=== PATIENT | female | born 1955 | race Caucasian/White ===

== ENCOUNTER 2017-06-26 18:57 | Observation (INO) ==
[2017-06-26] MEDS ORDERED: Ipratropium/Albuterol Neb 3 ML IH ONE (19:22)
[2017-06-26] MEDS ORDERED: 0.9 % Sodium Chloride 1,000 ML IVC ONE (19:23)
--- NOTE | 2017-06-26 19:28 | Emergency Department Note ---
Disposition Clinical Impression: Anemia Qualifiers: Anemia type: unspecified type Qualified Code(s): D64.9 - Anemia, unspecified Pneumonia Qualifiers: Pneumonia type: due to unspecified organism Laterality: right Lung location: lower lobe of lung Qualified Code(s): J18.1 - Lobar pneumonia, unspecified organism Sepsis Qualifiers: Sepsis type: sepsis due to unspecified organism Qualified Code(s): A41.9 - Sepsis, unspecified organism Fever Qualifiers: Fever type: unspecified Qualified Code(s): R50.9 - Fever, unspecified Disposition: Admitted As Inpatient Condition: Fair Time of Disposition: 20:30 General Adult HPI - General Chief complaint: ED Shortness of Breath/Dyspnea Stated complaint: EDNA, sent from Time Seen by Provider: 06/26/17 19:09 Source: patient Limitations: no limitations Nursing Notes Reviewed: Yes Vital Signs Reviewed: Yes - History of Present Illness HPI Narrative: Patient is a 62-year-old female that presents the emergency department for shortness of breath. States is been ongoing for approximately one week. States that she has also had an associated cough or she is coughing up white phlegm. Patient states that she has been feeling warm and has been febrile as high as 102. Patient also states that today she had an episode of chest pain is located in the center of her chest without radiation. States that she took one nitroglycerin and this relieved her pain. Patient does state that she has a history of COPD and takes and inhalers and has been using these regularly. Patient denies any diaphoresis or nausea during the episode of chest pain. Pain Scale: 0 - Related Data Home Medications Medication Instructions Recorded Confirmed Alprazolam 06/26/17 Amitriptyline 06/26/17 Aspirin 06/26/17 Basaglar Kwikpen U-100 06/26/17 Lantus Solostar 06/26/17 Lasix 06/26/17 Losartan Potassium 06/26/17 Lovastatin 06/26/17 Lyrica 06/26/17 Metoprolol Tartrate 06/26/17 Rizatriptan Benzoate 06/26/17 Symbicort 160/4.5 06/26/17 metFORMIN 06/26/17 Previous Rx's Medication Instructions Recorded Benzonatate [Tessalon] 100 mg PO TID #15 capsule 06/26/17 Ipratropium/Albuterol Neb [Duoneb] 3 ml IH Q6HR #30 vial.neb 06/26/17 Levofloxacin [Levaquin] 750 mg PO DAILY #10 tablet 06/26/17 PredniSONE [Deltasone] 20 mg PO DAILY #12 tablet 06/26/17 Allergies Allergy/AdvReac Type Severity Reaction Status Date / Time Cephalosporins AdvReac Flushing Verified 06/05/15 08:00 All systems ED: reviewed and negative except as stated. Constitutional: Reports: fever Cardiovascular: Reports: chest pain Respiratory: Reports: cough, dyspnea, wheezes, sputum production Gastrointestinal: Reports: nausea. Denies: abdominal pain, vomiting Past Medical History - Past Medical History Medical history: Reports: arthritis, COPD, coronary artery disease, diabetes, GERD, hyperlipidemia, hypertension, other Surgical history: Reports: angioplasty/stent, hysterectomy Psychiatric history: Reports: no psych history - Social History Smoking Status: Former smoker Smokeless Tobacco Status: No Alcohol use: Reports: none Drug use: Reports: none Physical Exam - General Limitations: no limitations General appearance: alert, in no apparent distress - Head Head exam: atraumatic, normocephalic - Eye Eye exam: Present: normal appearance, EOMI - Neck Neck exam: Present: normal inspection, full ROM, trachea midline - Respiratory Respiratory exam: Present: wheezes, other (Coarse breath sounds bilaterally) - Cardiovascular Cardiovascular exam: Present: regular rate, normal rhythm, normal heart sounds, +S1, +S2 - Abdominal Exam Abdominal exam: Present: soft, Non-Tender, normal bowel sounds - Neurological Exam Neurological exam: Present: alert, oriented X3 - Psychiatric Psychiatric exam: Present: normal affect, normal mood - Skin Skin exam: Present: warm, dry, intact Course Vital Signs Temperature 101.8 F H 06/26/17 19:09 Pulse Rate 104 06/26/17 19:09 Respiratory Rate 22 06/26/17 19:09 Blood Pressure 179/53 06/26/17 19:09 O2 Sat by Pulse Oximetry 89 06/26/17 19:09 Temperature 98.9 F 06/26/17 20:44 Pulse Rate 104 06/26/17 20:19 Respiratory Rate 18 06/26/17 20:19 Blood Pressure 162/76 06/26/17 20:19 O2 Sat by Pulse Oximetry 93 06/26/17 20:19 Oxygen Delivery Oxygen Delivery Nasal Cannula Medical Decision Making - MDM Narrative Medical decision making narrative: Due to the patient presenting to the emergency department with shortness of breath, cough, tachycardic febrile and There is concern for the patient to have sepsis due to underlying pneumonia. We will obtain a CBC, BMP, BMP, troponin chest x-ray and EKG. Blood cultures will also be obtained in with a lactic acid. The patient will also be started on IV fluids and given DuoNeb breathing treatments. Due to the patient meeting SIRS criteria and their concern for pneumonia in the poor sensitivity of a chest x-ray I feel that based on the physical exam findings and the patient's symptoms there is a high likely that this patient could have a pneumonia that his not being seen on the x-ray. We will start this patient on vancomycin and Zosyn and admit the patient to the hospital. Patient was not started on Rocephin and azithromycin due to the patient having an allergy to cephalosporins. Also the patient met sepsis criteria and we felt that her be more appropriate for the patient to be started on broad-spectrum antibiotics. Patient did not have an elevated white count, troponin was negative. Called and spoke with the hospitalist and they have accepted the patient to their service. The patient be admitted to the hospital this time for further evaluation and management. - Medical Records Medical records reviewed: Yes I reviewed the patient's medical records. - Lab Data Lab results reviewed: Yes I reviewed the patient's lab results. Result diagrams: 06/26/17 19:22 06/26/17 19:26 Lab Results 06/26/17 06/26/17 06/26/17 Range/Units 19:21 19:22 19:22 WBC 8.5 (4.3-11.1) K/mcL RBC 3.85 (3.82-4.97) M/mcL Hgb 10.0 L (11.5-15.4) g/dL Hct 30.9 L (35.3-44.9) % MCV 80.3 L (83.0-100.0) fL MCH 26.0 L (28.0-33.3) pg MCHC 32.4 (31.6-35.5) g/dL RDW 15.7 H (11.5-14.5) % Plt Count 232 (140-400) K/mcL MPV 10.4 (9.4-12.4) fL Immature Gran % 0.4 (0-4) % Seg Neutrophils % 85.8 % Lymphocytes % 7.3 % Monocytes % 5.4 % Eosinophils % 0.9 % Basophils % 0.2 % Neutrophils # 7.3 (1.6-8.9) K/mcL Lymphocytes # 0.6 (0.6-4.6) K/mcL Monocytes # 0.5 (0.0-1.3) K/mcL Eosinophils # 0.1 (0.0-0.6) K/mcL Basophils # 0.0 (0.0-0.2) K/mcL Immature Plt Fraction 3.8 (1.1-6.1) % Sodium (136-145) mEq/L Potassium (3.5-5.1) mEq/L Chloride (98-107) mEq/L Carbon Dioxide (23-29) mEq/L BUN (8-23) mg/dL Creatinine (0.60-1.20) mg/dL Est GFR ( Amer) (> 60) Est GFR (Non-Af Amer) (> 60) BUN/Creatinine Ratio (6-26) Glucose (70-105) mg/dL Calculated Osmolality (280-300) Lactic Acid 2.2 (0.5-2.2) mmol/L Calcium (8.6-10.3) mg/dL Troponin I (< 0.04) ng/mL B-Natriuretic Peptide 80 (Less than 100) pg/mL 06/26/17 06/26/17 Range/Units 19:26 21:30 WBC (4.3-11.1) K/mcL RBC (3.82-4.97) M/mcL Hgb (11.5-15.4) g/dL Hct (35.3-44.9) % MCV (83.0-100.0) fL MCH (28.0-33.3) pg MCHC (31.6-35.5) g/dL RDW (11.5-14.5) % Plt Count (140-400) K/mcL MPV (9.4-12.4) fL Immature Gran % (0-4) % Seg Neutrophils % % Lymphocytes % % Monocytes % % Eosinophils % % Basophils % % Neutrophils # (1.6-8.9) K/mcL Lymphocytes # (0.6-4.6) K/mcL Monocytes # (0.0-1.3) K/mcL Eosinophils # (0.0-0.6) K/mcL Basophils # (0.0-0.2) K/mcL Immature Plt Fraction (1.1-6.1) % Sodium 132 L (136-145) mEq/L Potassium 4.3 (3.5-5.1) mEq/L Chloride 100 (98-107) mEq/L Carbon Dioxide 22 L (23-29) mEq/L BUN 23 (8-23) mg/dL Creatinine 0.90 (0.60-1.20) mg/dL Est GFR ( Amer) > 60 (> 60) Est GFR (Non-Af Amer) > 60 (> 60) BUN/Creatinine Ratio 26 (6-26) Glucose 285 H (70-105) mg/dL Calculated Osmolality 288 (280-300) Lactic Acid 1.6 (0.5-2.2) mmol/L Calcium 8.3 L (8.6-10.3) mg/dL Troponin I < 0.03 (< 0.04) ng/mL B-Natriuretic Peptide (Less than 100) pg/mL - Radiology Data Radiology results reviewed: Yes I reviewed the patient's radiology results. - EKG Data EKG #1 EKG attestation: Yes I reviewed and interpreted this EKG. EKG results narrative: EKG showed sinus tachycardia at a rate of 100 bpm, MS interval of 163, QRS duration of 88, QTC of 393 with a normal axis. There is no evidence of STEMI on EKG. This is compared to previous EKG on 11/29/13 which showed a sinus rhythm at a rate of 77 bpm.
--- NOTE | 2017-06-26 19:30 | Emergency Department Note ---
Disposition Clinical Impression: Anemia, Pneumonia, Sepsis Disposition: Admitted As Inpatient Condition: Fair General Adult HPI - General Chief complaint: ED Shortness of Breath/Dyspnea Stated complaint: EDNA, sent from Time Seen by Provider: 06/26/17 19:09 Source: patient Limitations: no limitations Nursing Notes Reviewed: Yes Vital Signs Reviewed: Yes - History of Present Illness Pain Scale: 0 - Related Data Home Medications Medication Instructions Recorded Confirmed Alprazolam 1 mg PO TID PRN 06/26/17 Amitriptyline 06/26/17 Aspirin 06/26/17 Basaglar Kwikpen U-100 06/26/17 Lantus Solostar 06/26/17 Lasix 06/26/17 Losartan Potassium 06/26/17 Lovastatin 06/26/17 Lyrica 06/26/17 Metoprolol Tartrate 06/26/17 Rizatriptan Benzoate 06/26/17 Symbicort 160/4.5 06/26/17 metFORMIN 06/26/17 Previous Rx's Medication Instructions Recorded Benzonatate [Tessalon] 100 mg PO TID #15 capsule 06/26/17 Ipratropium/Albuterol Neb [Duoneb] 3 ml IH Q6HR #30 vial.neb 06/26/17 Levofloxacin [Levaquin] 750 mg PO DAILY #10 tablet 06/26/17 PredniSONE [Deltasone] 20 mg PO DAILY #12 tablet 06/26/17 Allergies Allergy/AdvReac Type Severity Reaction Status Date / Time Cephalosporins AdvReac Flushing Verified 06/05/15 08:00 Past Medical History - Past Medical History Medical history: Reports: arthritis, COPD, coronary artery disease, diabetes, GERD, hyperlipidemia, hypertension, other Surgical history: Reports: angioplasty/stent, hysterectomy Psychiatric history: Reports: no psych history - Social History Smoking Status: Former smoker Smokeless Tobacco Status: No Alcohol use: Reports: none Drug use: Reports: none Physical Exam - General Limitations: no limitations General appearance: alert, in no apparent distress Course - Reevaluation(s) Reevaluation #1: I examined this patient and my medical decision-making was reviewed with Dr. Fountain. I agree with the documented findings, disposition and treatment plan. This is a 62 year-old female with history of HTN, IDDM, CAD/stent, and COPD (no home O2). She presents with dyspnea, gradually worsening for the past 2-3 days, associated with fever and productive cough. She had a brief episode of chest pain en route to the hospital, relieved by NTG. On exam, patient is in mild to moderate respiratory distress. Fever, mild tachcardia, and hypoxia are noted. Bilateral expiratory wheezes. Overall, patient's presentation is highly suggestive of pneumonia, sepsis, and COPD exacerbation. We will initiate fluids, antibiotics, and nebs, in addition to blood cultures, lactate, and other diagnostic tests. Time: 19:25 Vital Signs Temperature 101.8 F H 06/26/17 19:09 Pulse Rate 104 06/26/17 19:09 Respiratory Rate 22 06/26/17 19:09 Blood Pressure 179/53 06/26/17 19:09 O2 Sat by Pulse Oximetry 89 06/26/17 19:09 Temperature 97.6 F 06/26/17 23:51 Pulse Rate 80 06/26/17 23:51 Respiratory Rate 17 06/26/17 23:51 Blood Pressure 152/70 06/26/17 23:51 O2 Sat by Pulse Oximetry 94 06/26/17 23:51 Oxygen Delivery Oxygen Delivery Nasal Cannula Medical Decision Making - Lab Data Result diagrams: 06/26/17 19:22 06/26/17 19:26 Lab Results 06/26/17 06/26/17 06/26/17 Range/Units 19:21 19:22 19:22 WBC 8.5 (4.3-11.1) K/mcL RBC 3.85 (3.82-4.97) M/mcL Hgb 10.0 L (11.5-15.4) g/dL Hct 30.9 L (35.3-44.9) % MCV 80.3 L (83.0-100.0) fL MCH 26.0 L (28.0-33.3) pg MCHC 32.4 (31.6-35.5) g/dL RDW 15.7 H (11.5-14.5) % Plt Count 232 (140-400) K/mcL MPV 10.4 (9.4-12.4) fL Immature Gran % 0.4 (0-4) % Seg Neutrophils % 85.8 % Lymphocytes % 7.3 % Monocytes % 5.4 % Eosinophils % 0.9 % Basophils % 0.2 % Neutrophils # 7.3 (1.6-8.9) K/mcL Lymphocytes # 0.6 (0.6-4.6) K/mcL Monocytes # 0.5 (0.0-1.3) K/mcL Eosinophils # 0.1 (0.0-0.6) K/mcL Basophils # 0.0 (0.0-0.2) K/mcL Immature Plt Fraction 3.8 (1.1-6.1) % Sodium (136-145) mEq/L Potassium (3.5-5.1) mEq/L Chloride (98-107) mEq/L Carbon Dioxide (23-29) mEq/L BUN (8-23) mg/dL Creatinine (0.60-1.20) mg/dL Est GFR ( Amer) (> 60) Est GFR (Non-Af Amer) (> 60) BUN/Creatinine Ratio (6-26) Glucose (70-105) mg/dL Calculated Osmolality (280-300) Lactic Acid 2.2 (0.5-2.2) mmol/L Calcium (8.6-10.3) mg/dL Troponin I (< 0.04) ng/mL B-Natriuretic Peptide 80 (Less than 100) pg/mL 06/26/17 06/26/17 Range/Units 19:26 21:30 WBC (4.3-11.1) K/mcL RBC (3.82-4.97) M/mcL Hgb (11.5-15.4) g/dL Hct (35.3-44.9) % MCV (83.0-100.0) fL MCH (28.0-33.3) pg MCHC (31.6-35.5) g/dL RDW (11.5-14.5) % Plt Count (140-400) K/mcL MPV (9.4-12.4) fL Immature Gran % (0-4) % Seg Neutrophils % % Lymphocytes % % Monocytes % % Eosinophils % % Basophils % % Neutrophils # (1.6-8.9) K/mcL Lymphocytes # (0.6-4.6) K/mcL Monocytes # (0.0-1.3) K/mcL Eosinophils # (0.0-0.6) K/mcL Basophils # (0.0-0.2) K/mcL Immature Plt Fraction (1.1-6.1) % Sodium 132 L (136-145) mEq/L Potassium 4.3 (3.5-5.1) mEq/L Chloride 100 (98-107) mEq/L Carbon Dioxide 22 L (23-29) mEq/L BUN 23 (8-23) mg/dL Creatinine 0.90 (0.60-1.20) mg/dL Est GFR ( Amer) > 60 (> 60) Est GFR (Non-Af Amer) > 60 (> 60) BUN/Creatinine Ratio 26 (6-26) Glucose 285 H (70-105) mg/dL Calculated Osmolality 288 (280-300) Lactic Acid 1.6 (0.5-2.2) mmol/L Calcium 8.3 L (8.6-10.3) mg/dL Troponin I < 0.03 (< 0.04) ng/mL B-Natriuretic Peptide (Less than 100) pg/mL - Radiology Data Radiology results reviewed: Yes I reviewed the patient's radiology results. XR/XR chest 2V IMPRESSION: 1. Mild basilar atelectasis. Otherwise unremarkable chest radiograph. - EKG Data EKG #1 EKG attestation: Yes I reviewed and interpreted this EKG. EKG shows normal: sinus rhythm Rate: tachycardia [place]/QRS: normal When compared to previous EKG there are: no significant changes Interpretation: no acute changes
[2017-06-26 19:41] LABS: Basophils % 0.2 %; Eosinophils # 0.1 K/mcL (0.0-0.6); Eosinophils % 0.9 %; Hematocrit 30.9 % (35.3-44.9); Immature Granulocytes % 0.4 % (0-4); Immature Platelets 3.8 % (1.1-6.1); Lymphocytes # 0.6 K/mcL (0.6-4.6); Lymphocytes % 7.3 %; Mean Corpuscular HGB Conc 32.4 g/dL (31.6-35.5); Mean Corpuscular Volume 80.3 fL (83.0-100.0); Mean Platelet Volume 10.4 fL (9.4-12.4); Monocytes # 0.5 K/mcL (0.0-1.3); Monocytes % 5.4 %; Neutrophils # 7.3 K/mcL (1.6-8.9); Platelet Count 232 K/mcL (140-400); Red Blood Count 3.85 M/mcL (3.82-4.97); Red Cell Distribution Width 15.7 % (11.5-14.5); Segmented Neutrophils % 85.8 %
[2017-06-26] MEDS ORDERED: Aspirin 81 MG TAB.CHEW PO STA (19:42)
[2017-06-26] MEDS ORDERED: Piperacillin/Tazobactam 3.375 GM in 0.9 % Sodium Chloride Mini Bag 100 ML IVPB ONE (19:48)
[2017-06-26 20:09] LABS: BUN/Creatinine Ratio 26 (6-26); Blood Urea Nitrogen 23 mg/dL (8-23); Calcium 8.3 mg/dL (8.6-10.3); Carbon Dioxide 22 mEq/L (23-29); Chloride 100 mEq/L (98-107); Glucose 285 mg/dL (70-105); Osmolality,Calculated 288 (280-300); Potassium 4.3 mEq/L (3.5-5.1); Sodium 132 mEq/L (136-145); eGFR For African Americans > 60 (> 60); eGFR For Non-African Americans > 60 (> 60)
[2017-06-26 20:25] LABS: Troponin I < 0.03 ng/mL (< 0.04)
[2017-06-26] MEDS ORDERED: D5% in Water 1,000 ML IVC PRN (20:52)
[2017-06-26] MEDS ORDERED: Naloxone 0.4 MG/ML INJ IVP PRN (20:52)
[2017-06-26] MEDS ORDERED: Dextrose Gel 15 GM/37.5 ML TUBE PO PRN ×2 (20:52)
[2017-06-26] MEDS ORDERED: *HR* Dextrose 50 % in Water (Syg) 50 ML SYRINGE IVP PRN (20:52)
--- NOTE | 2017-06-26 21:07 | Internal Med History&Physical ---
Date of Encounter: 06/26/17 Time of Encounter: 20:57 Internal Medicine - H&P: HPI Chief complaint: shortness of breath Admitted From: Emergency Dept Plans for Post Hospital Care: Home History of present illness: Ms. Valle is a 62 year old female with history of COPD, CAD s/p stents, HTN, DM who presents with shortness of breath and found to be hypoxic in the 80s on room air. The patient was seen at [facility] and was also hypoxic there and refused going to the ED from there. She left and continued to have symptoms of shortenss of breath with cough and productive sputum. She as febrile up to 102 and was around that in the ED. She was tachycardic. She has been having symptoms for a few days. She complaints of chest pain en route to here that was brief and relieved by SL nitro. EKG with no acute ST or T wave changes. No headache, blurry vision, nausea, vomiting, abdominal pain, diarrhea, constipation, urinary symptoms, or neurological symptoms. In the ED, CXR failed to show an infiltrate but the patient was giving broad spectrum abx for clinical pneumonia. She was given nebs and IV fluids. Past Med Surg Social Fam HX - Past Medical History Medical history: arthritis, COPD, coronary artery disease, diabetes, GERD, hyperlipidemia, hypertension, other Psychiatric history: no psych history - Past Surgical History Surgical History: angioplasty/stent, hysterectomy - Social History Smoking Status: Former smoker Smokeless Tobacco Status: No Alcohol use: none Drug use: none Internal Medicine - H&P: Meds Alprazolam 06/26/17 [History] Amitriptyline 06/26/17 [History] Aspirin 06/26/17 [History] Basaglar Kwikpen U-100 06/26/17 [History] Benzonatate [Tessalon] 100 mg PO TID #15 capsule 06/26/17 [Rx] Ipratropium/Albuterol Neb [Duoneb] 3 ml IH Q6HR #30 vial.neb 06/26/17 [Rx] Lantus Solostar 06/26/17 [History] Lasix 06/26/17 [History] Levofloxacin [Levaquin] 750 mg PO DAILY #10 tablet 06/26/17 [Rx] Losartan Potassium 06/26/17 [History] Lovastatin 06/26/17 [History] Lyrica 06/26/17 [History] Metoprolol Tartrate 06/26/17 [History] PredniSONE [Deltasone] 20 mg PO DAILY #12 tablet 06/26/17 [Rx] Rizatriptan Benzoate 06/26/17 [History] Symbicort 160/4.5 06/26/17 [History] metFORMIN 06/26/17 [History] 3 Allergy/AdvReac Type Severity Reaction Status Date / Time Cephalosporins AdvReac Flushing Verified 06/05/15 08:00 All Systems PM: A 10-system review of systems was performed and is negative for pertinent findings except as documented above in the HPI. Review of systems: All systems reviewed are negative except as mentioned above - Constitutional Vitals: Temp Pulse Resp BP Pulse Ox 98.9 F 104 18 162/76 93 06/26/17 20:44 06/26/17 20:19 06/26/17 20:19 06/26/17 20:19 06/26/17 20:19 Exam: GEN: NAD HEENT: AT, NC, No cyanosis, oral mucosa is moist, No JVD Lymphatics: No lymphadenoapthy Eyes: Extrocular muscles intact, anicteric CVS:RRR. S1, S2, No m/r/g RESP: CTAB ABD: Soft, NT, ND, +BS EXT: No edema, No rashes, 2+ DP NEURO: Nonfocal, CN II-XII intact, No focal motor or sensory deficits Psych: Cooperative, Not anxious or depressed Internal Med - H&P Results - Labs CBC & Chem 7: 06/26/17 19:22 06/26/17 19:26 Labs: Short CBC 06/26/17 Range/Units 19:22 WBC 8.5 (4.3-11.1) K/mcL Hgb 10.0 L (11.5-15.4) g/dL Hct 30.9 L (35.3-44.9) % Plt Count 232 (140-400) K/mcL Neutrophils # 7.3 (1.6-8.9) K/mcL BMP 06/26/17 19:26 Sodium 132 L Potassium 4.3 Chloride 100 Carbon Dioxide 22 L BUN 23 Creatinine 0.90 Glucose 285 H Calcium 8.3 L Cardiac Enzymes 06/26/17 Range/Units 19:26 Troponin I < 0.03 (< 0.04) ng/mL - Assessment and plan (1) Sepsis Current Visit: Yes Status: Acute Assessment and plan: Patient has septic-looking picture possibly from pneumonia/bronchitis. Lactic acid is normal. We will continue gentle hydration. The patient heart rate is coming down. Treat underlying cause as below. Qualifiers: Sepsis type: sepsis due to unspecified organism Qualified Code(s): A41.9 - Sepsis, unspecified organism (2) Acute respiratory failure with hypoxia Current Visit: Yes Status: Acute Assessment and plan: Likely from COPD exacerbation and clinical pneumonia/bronchitis. We will continue to support and nebulizers. Treat underlying causes as below. (3) COPD exacerbation Current Visit: Yes Status: Acute Assessment and plan: O2 support. Nebs. IV Solu-Medrol every 8 hours. Wean down oxygen as tolerated. On Levaquin. (4) Bronchitis Current Visit: Yes Status: Acute Assessment and plan: The patient has been placed on Levaquin. O2 support. Nebs. check urine strep and legionella. check sputum. f/u on blood cultures. (5) Chest pain Current Visit: Yes Status: Acute Assessment and plan: non specific sharp pain. One episode with no EKG changes. Will trend cardiac enzymes for now. Qualifiers: Chest pain type: unspecified Qualified Code(s): R07.9 - Chest pain, unspecified (6) Diabetes mellitus Current Visit: Yes Status: Acute Assessment and plan: Insulin sliding scale. Resume home basal insulin. Accu-Cheks. 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 enamel finisher insulin use: with enamel finisher use Diabetes mellitus complication status: without complication Qualified Code(s): E11.9 - Type 2 diabetes mellitus without complications; Z79.4 - detention (current) use of insulin; Z79.4 - sports official ( current) use of insulin; Z79.4 - sports official (current) use of insulin; Z79.4 - sports official (current) use of insulin (7) Hypertension Current Visit: Yes Status: Acute Assessment and plan: Continue home antihypertensives Qualifiers: Hypertension type: essential hypertension Qualified Code(s): I10 - Essential (primary) hypertension (8) DVT prophylaxis Current Visit: Yes Status: Acute Assessment and plan: heparin SQ - Time Spent With Patient Total time spent is greater than 50% in coordination of care (as documented) at patient's floor/unit and/or counseling patient:
[2017-06-26] MEDS: Ipratropium/Albuterol Neb 3 ML IH SCH (23:21)
[2017-06-27] MEDS: 0.9 % Sodium Chloride 1,000 ML IVC SCH
[2017-06-27] MEDS: *HR* Heparin 5,000 UNIT/ML VIAL SQ SCH ×3 (00:01→18:21)
[2017-06-27] MEDS: Insulin LISPRO 300 UNITS/3 ML VIAL SQ SCH ×5 (00:22→21:29)
[2017-06-27 01:38] LABS: Basophils % 0.1 %; Hematocrit 29.9 % (35.3-44.9); Hemoglobin 9.5 g/dL (11.5-15.4); Immature Granulocytes % 0.5 % (0-4); Lymphocytes # 0.7 K/mcL (0.6-4.6); Lymphocytes % 6.5 %; Mean Corpuscular HGB Conc 31.8 g/dL (31.6-35.5); Mean Corpuscular Hemoglobin 25.6 pg (28.0-33.3); Mean Corpuscular Volume 80.6 fL (83.0-100.0); Mean Platelet Volume 10.3 fL (9.4-12.4); Monocytes # 0.2 K/mcL (0.0-1.3); Monocytes % 1.8 %; Neutrophils # 10.1 K/mcL (1.6-8.9); Platelet Count 215 K/mcL (140-400); Red Blood Count 3.71 M/mcL (3.82-4.97); Red Cell Distribution Width 15.7 % (11.5-14.5); Segmented Neutrophils % 91.1 %
[2017-06-27 01:57] LABS: BUN/Creatinine Ratio 27 (6-26); Blood Urea Nitrogen 20 mg/dL (8-23); Calcium 7.9 mg/dL (8.6-10.3); Carbon Dioxide 19 mEq/L (23-29); Chloride 103 mEq/L (98-107); Glucose 348 mg/dL (70-105); Magnesium 0.8 mg/dL (1.6-2.6); Osmolality,Calculated 292 (280-300); Potassium 3.7 mEq/L (3.5-5.1); Sodium 133 mEq/L (136-145); eGFR For African Americans > 60 (> 60); eGFR For Non-African Americans > 60 (> 60)
[2017-06-27] MEDS: Ipratropium/Albuterol Neb 3 ML IH SCH ×4 (05:35→21:28)
--- NOTE | 2017-06-27 08:44 | Internal Med Progress Note ---
<Sharath Dodson - Last Filed: 06/27/17 13:39> Date of Encounter: 06/27/17 Time of Encounter: 08:43 - Assessment and plan (1) Acute respiratory failure with hypoxia Current Visit: Yes Status: Acute Assessment and plan: Improved. Patient initially presents with hypoxia into 80s from Urgent Care. Oxygen levels around 93%+ on room air and 98% on 2L nasal cannula Likely secondary to COPD exacerbation and clinical pneumonia. CXR revealed mild basilar atelectasis. Urine Antigen positive for S. pneumoniae. Continue with solumedrol 60mg q8h and Levaquin d2 Supplemental oxygen as needed, and nebulizers. Sputum culture ordered Blood cultures pending. (2) COPD exacerbation Current Visit: Yes Status: Acute Assessment and plan: Continue per plan in assessment above. (3) Bronchitis Current Visit: Yes Status: Acute Assessment and plan: Continue per plan in assessment above. (4) Sepsis Current Visit: Yes Status: Resolved Assessment and plan: Patient presented initially with septic-looking picture, but no leukocytosis, normal lactic acid. Tachycardia and fever resolved by hospital admission. Qualifiers: Sepsis type: sepsis due to unspecified organism Qualified Code(s): A41.9 - Sepsis, unspecified organism (5) Chest pain Current Visit: Yes Status: Acute Assessment and plan: Chest pain is reproducible with palpation, most likely musculoskeletal and related to acute bronchitis. EKG negative for acute changes. Troponin negative x 3. Qualifiers: Chest pain type: unspecified Qualified Code(s): R07.9 - Chest pain, unspecified (6) Diabetes mellitus Current Visit: Yes Status: Chronic Assessment and plan: Known history of diabetes. Glucose 348 this morning. Continue with sliding scale insulin and home insulin dosing. Diabetic diet 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 snf insulin use: with snf use Diabetes mellitus complication status: without complication Qualified Code(s): E11.9 - Type 2 diabetes mellitus without complications; Z79.4 - skilled nursing (current) use of insulin; Z79.4 - skilled nursing ( current) use of insulin; Z79.4 - skilled nursing (current) use of insulin; Z79.4 - exterminator termite (current) use of insulin (7) Hypertension Current Visit: Yes Status: Chronic Assessment and plan: Bp elevated at 160/82. Continue with home medications for chronic disease management. Continue monitoring bp during hospitalization. Qualifiers: Hypertension type: essential hypertension Qualified Code(s): I10 - Essential (primary) hypertension (8) DVT prophylaxis Current Visit: Yes Status: Acute Assessment and plan: Heparin sq for dvt ppx. (9) Hypomagnesemia Current Visit: Yes Status: Acute Assessment and plan: Magnesium at 0.8. 4 grams IV once completed. Repeat magnesium level. - Time Spent With Patient Total time spent is greater than 50% in coordination of care (as documented) at patient's floor/unit and/or counseling patient: - Subjective Interval history: Patient has no new complaints this morning. Doing well, feeling less short of breath, decreased cough. Reports some midsternal chest pain, but much improved this morning. Patient has a history of COPD not on oxygen. Denies fevers, chills, sweats, headaches, lightheadedness, nausea, vomiting, abdominal pain, changes in bowels or bladder, weakness, or loss of sensation. - Constitutional Vitals: Temp Pulse Resp BP Pulse Ox 97.4 F L 87 19 160/82 98 06/27/17 07:00 06/27/17 07:00 06/27/17 07:00 06/27/17 07:00 06/27/17 07:00 General appearance: Present: cooperative, A&O X 3, pleasant, no acute distress, obese, answers questions appropriately - Head Head exam: Present: atraumatic, normal inspection, normocephalic - Eye Eye exam: Present: EOMI, normal appearance - ENT ENT exam: Present: mucous membranes moist, normal exam - Neck Neck exam general surgery: Present: full ROM, normal inspection, trachea midline. Absent: lymphadenopathy - Respiratory Respiratory exam: Present: chest wall tenderness (minimal tenderness with palpation), rhonchi, wheezes (expiratory). Absent: decreased breath sounds, rales, respiratory distress Additional comments: comfortable off oxygen. - Cardiovascular Cardiovascular exam: Present: RRR, +S1, +S2 - GI/Abdominal GI/Abdominal exam: Present: normal bowel sounds, soft. Absent: tenderness - Extremities Exam Extremities exam: Present: full ROM, normal inspection, warm, radial pulses palpable and symmetrical. Absent: pedal edema Internal Medicine: Result - Labs CBC & Chem 7: 06/27/17 01:24 06/27/17 01:24 Labs: Short CBC 06/27/17 Range/Units 01:24 WBC 11.1 (4.3-11.1) K/mcL Hgb 9.5 L (11.5-15.4) g/dL Hct 29.9 L (35.3-44.9) % Plt Count 215 (140-400) K/mcL Neutrophils # 10.1 H (1.6-8.9) K/mcL BMP 06/27/17 01:24 Sodium 133 L Potassium 3.7 Chloride 103 Carbon Dioxide 19 L BUN 20 Creatinine 0.73 Glucose 348 H Calcium 7.9 L Cardiac Enzymes 06/27/17 Range/Units 01:24 Troponin I < 0.03 (< 0.04) ng/mL Consult Discharge Plan - Plan Referrals: Ronnie Mendoza DO [Primary Care Provider] - <Jose R Hunt - Last Filed: 06/27/17 17:34> Date of Encounter: 06/27/17 - Assessment and plan (1) Sepsis Current Visit: Yes Status: Resolved Qualifiers: Sepsis type: sepsis due to unspecified organism Qualified Code(s): A41.9 - Sepsis, unspecified organism (2) Diabetes mellitus Current Visit: Yes Status: Chronic 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 operator insulin use: with snf use Diabetes mellitus complication status: without complication Qualified Code(s): E11.9 - Type 2 diabetes mellitus without complications; Z79.4 - exterminator termite (current) use of insulin; Z79.4 - exterminator termite ( current) use of insulin; Z79.4 - exterminator termite (current) use of insulin; Z79.4 - skilled nursing (current) use of insulin (3) Hypertension Current Visit: Yes Status: Chronic Qualifiers: Hypertension type: essential hypertension Qualified Code(s): I10 - Essential (primary) hypertension (4) DVT prophylaxis Current Visit: Yes Status: Acute (5) Acute respiratory failure with hypoxia Current Visit: Yes Status: Acute (6) COPD exacerbation Current Visit: Yes Status: Acute (7) Bronchitis Current Visit: Yes Status: Acute (8) Chest pain Current Visit: Yes Status: Acute Qualifiers: Chest pain type: unspecified Qualified Code(s): R07.9 - Chest pain, unspecified (9) Hypomagnesemia Current Visit: Yes Status: Acute (10) Pneumonia Current Visit: Yes Status: Acute Qualifiers: Pneumonia type: due to group B Streptococcus Laterality: right Lung location: lower lobe of lung Qualified Code(s): J15.3 - Pneumonia due to streptococcus, group B (11) Anemia Current Visit: Yes Status: Chronic Qualifiers: Anemia type: unspecified type Qualified Code(s): D64.9 - Anemia, unspecified - Time Spent With Patient Total time spent is greater than 50% in coordination of care (as documented) at patient's floor/unit and/or counseling patient: - Constitutional Vitals: Temp Pulse Resp BP Pulse Ox 97.6 F 115 16 178/82 95 06/27/17 16:00 06/27/17 16:00 06/27/17 16:01 06/27/17 16:00 06/27/17 16:01 Internal Medicine: Result - Labs CBC & Chem 7: 06/27/17 01:24 06/27/17 01:24 Labs: Short CBC 06/27/17 Range/Units 01:24 WBC 11.1 (4.3-11.1) K/mcL Hgb 9.5 L (11.5-15.4) g/dL Hct 29.9 L (35.3-44.9) % Plt Count 215 (140-400) K/mcL Neutrophils # 10.1 H (1.6-8.9) K/mcL BMP 06/27/17 01:24 Sodium 133 L Potassium 3.7 Chloride 103 Carbon Dioxide 19 L BUN 20 Creatinine 0.73 Glucose 348 H Calcium 7.9 L Cardiac Enzymes 06/27/17 06/27/17 Range/Units 01:24 08:10 Troponin I < 0.03 < 0.03 (< 0.04) ng/mL - Attending Attestation I examined this patient 06/27, and my medical decision-making was reviewed with the Resident Physician. I agree with the documented findings, disposition and treatment plan as described except to the extent set forth below. Seen and examined at the bedside. 62-year-old female being managed for sepsis secondary to pneumococcal pneumonia, COPD exacerbation, acute hypoxic respiratory failure. She has a medical history of diabetes mellitus, hypertension and morbid obesity. She reports clinical improvement. Physical examination remarkable for diffuse rhonchi. Minimal wheezing. No pedal edema. Abdomen is benign. Labs and imaging reviewed-chronic anemia, no leukocytosis, hyperglycemia. Sputum culture with many gram-positive cocci, urine streptococcal antigen positive. Continue current management. Change steroids to oral in the morning. Follow final sputum culture. Resume home medications. Rest of details as in the resident physicians documentation
[2017-06-27] MEDS: methylPREDNISolone 125 MG/2 ML VIAL IVP SCH ×3 (08:59→18:20)
[2017-06-27] MEDS: *HR* HYDROcodone/Acet 10/325 mg TABLET PO PRN ×2 (09:00→21:43)
[2017-06-27] MEDS ORDERED: Insulin DETEMIR 100 UNIT/ML X5UNITS SQ SCH (21:00)
[2017-06-27] MEDS: Ranolazine 500 MG TAB.ER.12H PO SCH (21:26)
[2017-06-27] MEDS: Losartan/HCTZ 50-12.5 TABLET PO SCH (21:26)
[2017-06-27] MEDS: Levofloxacin 750 MG/150 ML 750 MG/150 ML BAG IVPB SCH ×2 (21:27)
[2017-06-28] MEDS: methylPREDNISolone 125 MG/2 ML VIAL IVP SCH (00:25)
[2017-06-28] MEDS: *HR* Heparin 5,000 UNIT/ML VIAL SQ SCH (00:26)
[2017-06-28] MEDS ORDERED: Insulin DETEMIR 100 UNIT/ML X5UNITS SQ STA (00:34)
[2017-06-28] MEDS: Ipratropium/Albuterol Neb 3 ML IH SCH ×2 (04:32→10:33)
[2017-06-28 05:18] LABS: Hematocrit 28.7 % (35.3-44.9); Hemoglobin 9.4 g/dL (11.5-15.4); Immature Granulocytes % 0.7 % (0-4); Lymphocytes # 0.9 K/mcL (0.6-4.6); Lymphocytes % 9.8 %; Mean Corpuscular HGB Conc 32.8 g/dL (31.6-35.5); Mean Corpuscular Hemoglobin 25.8 pg (28.0-33.3); Mean Corpuscular Volume 78.8 fL (83.0-100.0); Mean Platelet Volume 10.3 fL (9.4-12.4); Monocytes # 0.3 K/mcL (0.0-1.3); Monocytes % 3.6 %; Neutrophils # 8.2 K/mcL (1.6-8.9); Platelet Count 231 K/mcL (140-400); Red Blood Count 3.64 M/mcL (3.82-4.97); Segmented Neutrophils % 85.9 %
[2017-06-28 05:37] LABS: BUN/Creatinine Ratio 31 (6-26); Blood Urea Nitrogen 20 mg/dL (8-23); Calcium 8.3 mg/dL (8.6-10.3); Carbon Dioxide 20 mEq/L (23-29); Chloride 103 mEq/L (98-107); Glucose 373 mg/dL (70-105); Osmolality,Calculated 300 (280-300); Potassium 3.8 mEq/L (3.5-5.1); Sodium 136 mEq/L (136-145); eGFR For African Americans > 60 (> 60); eGFR For Non-African Americans > 60 (> 60)
[2017-06-28] MEDS: 0.9 % Sodium Chloride 1,000 ML IVC SCH (06:14)
[2017-06-28] MEDS: Ranolazine 500 MG TAB.ER.12H PO SCH (07:50)
[2017-06-28] MEDS: Losartan/HCTZ 50-12.5 TABLET PO SCH (07:50)
[2017-06-28] MEDS: Insulin LISPRO 300 UNITS/3 ML VIAL SQ SCH ×2 (07:51→12:03)
[2017-06-28] MEDS ORDERED: predniSONE 20 MG TABLET PO SCH (09:00)
[2017-06-28] MEDS ORDERED: Insulin DETEMIR 100 UNIT/ML X5UNITS SQ SCH (09:00)
[2017-06-28] MEDS ORDERED: Aspirin Enteric Coated 81 MG Tablet PO SCH (09:00)
[2017-06-28 11:28] VITALS: BP 165/71
--- NOTE | 2017-06-28 11:49 | Discharge Summary ---
<Arturo Lantigua - Last Filed: 06/28/17 11:44> Date of Encounter: 06/28/17 Time of Encounter: 11:44 - Discharge Diagnosis (1) Acute respiratory failure with hypoxia Priority: Primary Status: Resolved (2) Pneumonia Priority: Secondary Status: Acute Assessment and Plan: Patient diagnosis streptococcal pneumonia Will need for additional days of antibiotics. Patient will be sent home on Levaquin 750 mg daily. She will then receive 7 days total antibiotics. Qualifiers: Pneumonia type: due to Pneumococcus Laterality: right Lung location: lower lobe of lung Qualified Code(s): J13 - Pneumonia due to Streptococcus pneumoniae (3) Anemia Priority: Secondary Status: Chronic Qualifiers: Anemia type: unspecified type Qualified Code(s): D64.9 - Anemia, unspecified (4) Sepsis Priority: Secondary Status: Resolved Qualifiers: Sepsis type: sepsis due to unspecified organism Qualified Code(s): A41.9 - Sepsis, unspecified organism (5) Diabetes mellitus Priority: Secondary Status: Chronic 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 intermodal customer service insulin use: with long-term use Diabetes mellitus complication status: without complication Qualified Code(s): E11.9 - Type 2 diabetes mellitus without complications; Z79.4 - middle or intermediate school principal (current) use of insulin; Z79.4 - middle or intermediate school principal ( current) use of insulin; Z79.4 - middle or intermediate school principal (current) use of insulin; Z79.4 - middle or intermediate school principal (current) use of insulin (6) Hypertension Priority: Secondary Status: Chronic Qualifiers: Hypertension type: essential hypertension Qualified Code(s): I10 - Essential (primary) hypertension (7) DVT prophylaxis Priority: Secondary Status: Acute (8) COPD exacerbation Priority: Secondary Status: Resolved (9) Bronchitis Priority: Secondary Status: Resolved (10) Chest pain Priority: Secondary Status: Resolved Qualifiers: Chest pain type: unspecified Qualified Code(s): R07.9 - Chest pain, unspecified (11) Hypomagnesemia Priority: Secondary Status: Resolved Hospital course: Ms. Valle is a 62 year old female admitted with chief complaint of shortness of breath. Patient was found to be hypoxic on room air at 80s. On presentation patient was febrile and tachycardic. Patient was found to have a chest x-ray that showed mild basilar atelectasis. Patient was suspected have pneumonia and started on broad-spectrum antibiotics. Patient's urine Streptococcus pneumoniae antigen was positive and her antibiotics were Descalated to Levaquin. She was also treated for COPD exacerbation secondary to pneumonia with IV steroids steroids and DuoNeb's and required oxygen supplementation. Patient's symptoms of shortness of breath improved with antibiotics and oxygen supplementation. She underwent a 6 minute oxygen qualification test but did not qualify. Patient has received a total of 3 days of IV antibiotics and will be discharged with an additional 4 days of Levaquin 750 mg daily. Patient is ambulating independently and tolerating her diet. She will follow-up with her primary care physician X7 days. - Time Spent with Patient Total time spent providing and/or coordinating discharge services: - Discharge Medications Prescriptions: Levofloxacin [Levaquin] 750 mg PO DAILY #4 tablet predniSONE [PredniSONE] 10 mg PO TAPER #10 tablet Home Medications: ALPRAZolam [Xanax 1 MG Tablet] 1 mg PO TID PRN 06/27/17 [History] Albuterol Sulfate [Ventolin Hfa] 2 puff IH Q4-6H PRN 06/27/17 [History] Amitriptyline [Elavil] 50 mg PO HS 06/27/17 [History] Aspirin [Lo-Dose Aspirin EC] 81 mg PO DAILY 06/27/17 [History] Budesonide/Formoterol 160/4.5 [Symbicort 160/4.5] 2 puff IH BIDR 06/27/17 [ History] HYDROcodone/Acet 10/325 mg [[place] 10-325 mg] 1 tab PO Q6HR PRN 06/27/17 [History ] Losartan/Hydrochlorothiazide [Losartan-Hctz 50-12.5 mg Tab] 1 tab PO BID [History] Lovastatin [Mevacor] 20 mg PO HS 06/27/17 [History] Metformin HCl [Glucophage] 1,000 mg PO BID 06/27/17 [History] Metoprolol [Lopressor] 75 mg PO BID 06/27/17 [History] Promethazine [Phenergan] 25 mg PO BID 06/27/17 [History] Rabeprazole Sodium [Aciphex] 20 mg PO DAILY 06/27/17 [History] Ranolazine [Ranexa] 500 mg PO BID 06/27/17 [History] Levofloxacin [Levaquin] 750 mg PO DAILY #4 tablet 06/28/17 [Rx] predniSONE [PredniSONE] 10 mg PO TAPER #10 tablet 06/28/17 [Rx] Allergies/Adverse Reactions: 3 Allergy/AdvReac Type Severity Reaction Status Date / Time Cephalosporins AdvReac [place] Verified 06/05/15 08:00 Date of admission: 06/26/17 21:44 Primary care physician: Kenn Sotelo Discharging clinician: Arturo Lantigua Anticipated date of discharge: 06/28/17 - Constitutional Vitals: Temp Pulse Resp BP Pulse Ox 97.5 F L 81 19 165/71 94 06/28/17 11:22 06/28/17 11:22 06/28/17 11:22 06/28/17 11:22 06/28/17 11:22 General appearance: Present: cooperative, A&O X 3, pleasant, no acute distress, obese, answers questions appropriately - Other Additional findings: General: without distress HEENT: Head atraumatic, normocephalic, EOMI, PERRL, neck nontender to palpation , absent lymphadenopathy, Moist Mucous Membranes, Heart: Regular rate and rhythm with no murmur Lungs: Mild wheezing bilaterally Abdomen: Soft nontender, nondistended positive bowel sounds Skin: warm and dry, absent rash Extremities: Absent pedal edema, Neuro: Cranial nerves II through XII intact, UE and LE sensation equal bilaterally, UE and LEstrength 5/5, alert oriented 3, Vascular: Pedal and radial pulses 2 out of 4 - Patient Status Disposition: Home, Self-Care Condition: Fair Functional capacity at discharge: independent ambulation Overall status at discharge: patient is progressing back to baseline - Discharge Instructions Follow Up With: Ronnie Mendoza DO [Primary Care Provider] - - Diet and Activity Activity: increase activity as tolerated Diet: diabetic diet, low fat, low cholesterol, low salt diet <Jose R Hunt - Last Filed: 06/28/17 13:22> Date of Encounter: 06/28/17 - Discharge Diagnosis (1) Anemia Status: Chronic Qualifiers: Anemia type: unspecified type Qualified Code(s): D64.9 - Anemia, unspecified (2) Pneumonia Status: Acute Qualifiers: Pneumonia type: due to Pneumococcus Laterality: right Lung location: lower lobe of lung Qualified Code(s): J13 - Pneumonia due to Streptococcus pneumoniae (3) Sepsis Status: Resolved Qualifiers: Sepsis type: sepsis due to unspecified organism Qualified Code(s): A41.9 - Sepsis, unspecified organism (4) Diabetes mellitus Status: Chronic 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 long-term insulin use: with intermodal customer service use Diabetes mellitus complication status: without complication Qualified Code(s): E11.9 - Type 2 diabetes mellitus without complications; Z79.4 - jail (current) use of insulin; Z79.4 - jail ( current) use of insulin; Z79.4 - jail (current) use of insulin; Z79.4 - jail (current) use of insulin (5) Hypertension Status: Chronic Qualifiers: Hypertension type: essential hypertension Qualified Code(s): I10 - Essential (primary) hypertension (6) DVT prophylaxis Status: Acute (7) Acute respiratory failure with hypoxia Status: Resolved (8) COPD exacerbation Status: Resolved (9) Bronchitis Status: Resolved (10) Chest pain Status: Resolved Qualifiers: Chest pain type: unspecified Qualified Code(s): R07.9 - Chest pain, unspecified (11) Hypomagnesemia Status: Resolved Hospital course: Ms. Valle is a 62 year old female Discharge discussed with: patient, nurse, case management - Time Spent with Patient Total time spent providing and/or coordinating discharge services: Greater than 30 minutes Date of admission: 06/26/17 21:44 Primary care physician: Kenn Sotelo - Constitutional Vitals: Temp Pulse Resp BP Pulse Ox 97.5 F L 81 19 165/71 97 06/28/17 11:22 06/28/17 11:22 06/28/17 11:22 06/28/17 11:22 06/28/17 11:45 - Attending Attestation I examined this patient 06/28, and my medical decision-making was reviewed with the Resident Physician. I agree with the documented findings, disposition and treatment plan as described except to the extent set forth below. Seen and examined at the bedside. 62-year-old female being managed for sepsis secondary to pneumococcal pneumonia, COPD exacerbation, acute hypoxic respiratory failure. She has a medical history of diabetes mellitus, hypertension and morbid obesity. She denied new complains and She reports clinical improvement. Physical examination remarkable for improved air entry, no wheezing. No pedal edema. Abdomen is benign. Labs and imaging reviewed-chronic anemia, no leukocytosis, hyperglycemia. Sputum culture with many gram-positive cocci, urine streptococcal antigen positive. Patient can be discharged home on levaquin, short course of steroids, hyperglycemia is due to steroids, she is educated to adjust her insulin according to her fingersticks, follow up with PCP. Patient did not qualify for home O2, Rest of details as in the resident physicians documentation
--- NOTE | 2017-06-28 16:37 | Electrocardiograph Report ---
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
== END 2017-06-28 14:55 | disposition home or self-care (01) | DRG 871 ==
LOC: 2NENU 18:57 → EMEROO 18:57 → SUATTDRO 21:44 → 2NENU 23:34
PROVIDERS: ADMIT Internal Medicine; ATTEND Internal Medicine

== ENCOUNTER 2018-01-08 09:07 | Observation (INO) ==
--- NOTE | 2018-01-08 09:24 | Emergency Department Note ---
Disposition Clinical Impression: Altered mental status, Noncompliance with medication regimen, Suicidal ideation Disposition: Admitted As Inpatient Condition: Good General Adult HPI - General Chief complaint: ED Altered Mental Status Stated complaint: SI/Altered Mental Status/decreased response Time Seen by Provider: 01/08/18 09:08 Source: patient, EMS Limitations: altered mental status - History of Present Illness Pain Scale: 2 - Related Data Home Medications Medication Instructions Recorded Confirmed RX: ALPRAZolam [Xanax 1 MG Tablet] 1 mg PO TID PRN 06/27/17 01/08/18 RX: Albuterol Sulfate [Ventolin 2 puff IH Q4-6H PRN 06/27/17 01/08/18 Hfa] RX: Amitriptyline [Elavil] 50 mg PO HS 06/27/17 01/08/18 RX: Aspirin [Lo-Dose Aspirin EC] 81 mg PO DAILY 06/27/17 01/08/18 RX: Budesonide/Formoterol 160/4.5 2 puff IH BIDR 06/27/17 01/08/18 [Symbicort 160/4.5] RX: HYDROcodone/Acet 10/325 mg 1 tab PO Q6HR PRN 06/27/17 01/08/18 [[place] 10-325 mg] RX: Losartan/Hydrochlorothiazide 1 tab PO BID 06/27/17 01/08/18 [Losartan-Hctz 50-12.5 mg Tab] RX: Lovastatin [Mevacor] 20 mg PO HS 06/27/17 01/08/18 RX: Metformin HCl [Glucophage] 1,000 mg PO BID 06/27/17 01/08/18 RX: Metoprolol [Lopressor] 75 mg PO BID 06/27/17 01/08/18 RX: Promethazine [Phenergan] 25 mg PO BID 06/27/17 01/08/18 RX: Rabeprazole Sodium [Aciphex] 20 mg PO DAILY 06/27/17 01/08/18 RX: Ranolazine [Ranexa] 500 mg PO BID 06/27/17 01/08/18 Insulin NPH Human Isophane 40 unit SQ BID 01/08/18 01/08/18 [Novolin N] Ipratropium/Albuterol Sulfate 3 ml IH Q6H PRN 01/08/18 01/08/18 [Iprat-Albut 0.5-3(2.5) mg/3 ml] Nitroglycerin [Nitrostat] 0.4 mg SL AD PRN 01/08/18 01/08/18 RX: Insulin ASPART [Novolog 35 unit SQ DAILY 01/08/18 01/08/18 Flexpen] Allergies Allergy/AdvReac Type Severity Reaction Status Date / Time Cephalosporins AdvReac Flushing Verified 01/08/18 09:09 Past Medical History - Past Medical History Medical history: Reports: arthritis, COPD, coronary artery disease, diabetes, GERD, hyperlipidemia, hypertension, other Surgical history: Reports: angioplasty/stent, hysterectomy Psychiatric history: Reports: no psych history - Social History Smoking Status: Former smoker Smokeless Tobacco Status: No Alcohol use: Reports: none Drug use: Reports: none Physical Exam - General Limitations: altered mental status Course Vital Signs Temperature 98.4 F 01/08/18 09:11 Pulse Rate 72 01/08/18 09:11 Respiratory Rate 28 01/08/18 09:11 Blood Pressure 144/68 01/08/18 09:11 O2 Sat by Pulse Oximetry 97 01/08/18 09:11 Temperature 98.2 F 01/08/18 14:56 Pulse Rate 81 01/08/18 14:56 Respiratory Rate 16 01/08/18 14:56 Blood Pressure 107/69 01/08/18 14:56 O2 Sat by Pulse Oximetry 96 01/08/18 14:56 Oxygen Delivery Oxygen Delivery Room Air Medical Decision Making - Lab Data Result diagrams: 01/08/18 09:17 01/08/18 09:17 Lab Results 01/08/18 01/08/18 01/08/18 Range/Units 09:17 09:17 09:17 WBC 9.9 (4.3-11.1) K/mcL RBC 5.67 H (3.82-4.97) M/mcL Hgb 15.2 (11.5-15.4) g/dL Hct 45.1 H (35.3-44.9) % MCV 79.5 L (83.0-100.0) fL MCH 26.8 L (28.0-33.3) pg MCHC 33.7 (31.6-35.5) g/dL RDW 13.9 (11.5-14.5) % Plt Count 243 (140-400) K/mcL MPV 11.5 (9.4-12.4) fL Immature Gran % 0.8 (0-4) % Seg Neutrophils % 66.4 % Lymphocytes % 23.7 % Monocytes % 8.0 % Eosinophils % 0.7 % Basophils % 0.4 % Neutrophils # 6.6 (1.6-8.9) K/mcL Lymphocytes # 2.3 (0.6-4.6) K/mcL Monocytes # 0.8 (0.0-1.3) K/mcL Eosinophils # 0.1 (0.0-0.6) K/mcL Basophils # 0.0 (0.0-0.2) K/mcL PT 12.6 H (9.4-12.1) Seconds INR 1.1 APTT 28.4 (26.0-36.0) Seconds Sodium 129 L (136-145) mEq/L Potassium 3.4 L (3.5-5.1) mEq/L Chloride 88 L (98-107) mEq/L Carbon Dioxide 26 (23-29) mEq/L BUN 26 H (8-23) mg/dL Creatinine 1.41 H (0.60-1.20) mg/dL Est GFR ( Amer) 46 L (> 60) Est GFR (Non-Af Amer) 38 L (> 60) BUN/Creatinine Ratio 18 (6-26) Glucose 483 H (70-105) mg/dL Calculated Osmolality 294 (280-300) Calcium 9.9 (8.6-10.3) mg/dL Total Bilirubin 0.5 (0.3-1.0) mg/dL Direct Bilirubin 0.1 (0.0-0.2) mg/dL Indirect Bilirubin 0.4 (0.0-1.2) mg/dL AST 12 L (13-39) Units/L ALT 10 (7-52) Units/L Alkaline Phosphatase 86 (34-104) Units/L Ammonia (16-53) mcmol/L Creatine Kinase 70 (30-223) Units/L Troponin I < 0.03 (< 0.04) ng/mL Serum Total Protein 7.2 (6.4-8.9) g/dL Albumin 4.0 (3.5-5.7) g/dL Globulin 3.2 (2.4-3.5) g/dL Albumin/Globulin Ratio 1.3 (1.1-2.2) TSH 0.524 (0.340-5.600) mcIU/mL Urine Color (Yellow) Urine Clarity (Clear) Urine pH (5.0-8.0) pH Units Ur Specific [place] (1.010-1.025) Urine Protein (Neg-Trace) mg/dL Urine Glucose (UA) (Normal) mg/dL Urine Ketones (Negative) mg/dL Urine Blood (Negative) Urine Nitrite (Negative) Urine Bilirubin (Negative) Urine Urobilinogen (Normal) mg/dL Ur Leukocyte Esterase (Negative) Urine Microscopic RBC (0-3) per hpf Urine Microscopic WBC (0-3) per hpf Ur Squamous Epith Cells (None-Few) per lpf Urine Bacteria (None-Few) per hpf Hyaline Casts (None-Few) per lpf Ur Culture Indicated? (NO) Salicylates 4.1 L (15.0-30.0) mg/dL Urine Opiates Screen (Crsldt=316) ng/mL Acetaminophen < 10 L (10-20) mcg/mL Ur Barbiturates Screen (Krovby=801) ng/mL Ur Phencyclidine Scrn (Cutoff=25) ng/mL Ur Amphetamines Screen (Fdzylj=6065) ng/mL U Benzodiazepines Scrn (Ehhdwz=164) ng/mL Urine Cocaine Screen (Cutoff= 300) ng/mL U Marijuana (THC) Screen (Cutoff = 50) ng/mL Ur Drug Screen Interp Ethyl Alcohol < 10 (Less than 10) mg/dL 01/08/18 01/08/18 01/08/18 Range/Units 09:17 10:43 10:43 WBC (4.3-11.1) K/mcL RBC (3.82-4.97) M/mcL Hgb (11.5-15.4) g/dL Hct (35.3-44.9) % MCV (83.0-100.0) fL MCH (28.0-33.3) pg MCHC (31.6-35.5) g/dL RDW (11.5-14.5) % Plt Count (140-400) K/mcL MPV (9.4-12.4) fL Immature Gran % (0-4) % Seg Neutrophils % % Lymphocytes % % Monocytes % % Eosinophils % % Basophils % % Neutrophils # (1.6-8.9) K/mcL Lymphocytes # (0.6-4.6) K/mcL Monocytes # (0.0-1.3) K/mcL Eosinophils # (0.0-0.6) K/mcL Basophils # (0.0-0.2) K/mcL PT (9.4-12.1) Seconds INR APTT (26.0-36.0) Seconds Sodium (136-145) mEq/L Potassium (3.5-5.1) mEq/L Chloride (98-107) mEq/L Carbon Dioxide (23-29) mEq/L BUN (8-23) mg/dL Creatinine (0.60-1.20) mg/dL Est GFR ( Amer) (> 60) Est GFR (Non-Af Amer) (> 60) BUN/Creatinine Ratio (6-26) Glucose (70-105) mg/dL Calculated Osmolality (280-300) Calcium (8.6-10.3) mg/dL Total Bilirubin (0.3-1.0) mg/dL Direct Bilirubin (0.0-0.2) mg/dL Indirect Bilirubin (0.0-1.2) mg/dL AST (13-39) Units/L ALT (7-52) Units/L Alkaline Phosphatase (34-104) Units/L Ammonia 35 (16-53) mcmol/L Creatine Kinase (30-223) Units/L Troponin I (< 0.04) ng/mL Serum Total Protein (6.4-8.9) g/dL Albumin (3.5-5.7) g/dL Globulin (2.4-3.5) g/dL Albumin/Globulin Ratio (1.1-2.2) TSH (0.340-5.600) mcIU/mL Urine Color Yellow (Yellow) Urine Clarity Clear (Clear) Urine pH 6.0 (5.0-8.0) pH Units Ur Specific [place] > 1.030 H (1.010-1.025) Urine Protein Trace (Neg-Trace) mg/dL Urine Glucose (UA) >=1000 H (Normal) mg/dL Urine Ketones 15 H (Negative) mg/dL Urine Blood Trace H (Negative) Urine Nitrite Negative (Negative) Urine Bilirubin Negative (Negative) Urine Urobilinogen Normal (Normal) mg/dL Ur Leukocyte Esterase Moderate H (Negative) Urine Microscopic RBC 5-15 H (0-3) per hpf Urine Microscopic WBC TNTC H (0-3) per hpf Ur Squamous Epith Cells Many H (None-Few) per lpf Urine Bacteria None Seen (None-Few) per hpf Hyaline Casts None Seen (None-Few) per lpf Ur Culture Indicated? NO. A (NO) Salicylates (15.0-30.0) mg/dL Urine Opiates Screen Negative (Nfslww=052) ng/mL Acetaminophen (10-20) mcg/mL Ur Barbiturates Screen Negative (Cforuz=716) ng/mL Ur Phencyclidine Scrn Negative (Cutoff=25) ng/mL Ur Amphetamines Screen Negative (Gavvvc=7830) ng/mL U Benzodiazepines Scrn Negative (Vvoxfm=093) ng/mL Urine Cocaine Screen Negative (Cutoff= 300) ng/mL U Marijuana (THC) Screen Negative (Cutoff = 50) ng/mL Ur Drug Screen Interp See Below Ethyl Alcohol (Less than 10) mg/dL Attestation Statement - Attestation Attestation: I examined this patient and my medical decision-making was reviewed with the Resident Physician. I agree with the documented findings, disposition and treatment plan as described except to the extent set forth below. [id number] time provided Patient was by EMS from home. It was reported that she threatened suicide and EMS was summoned for a will person check. She was later found on the floor. The patient is tearful and lucid and able to answer questions appropriately. She denies ingestion of illicit or prescription pharmaceutical substances.
--- NOTE | 2018-01-08 09:25 | Emergency Department Note ---
Disposition Clinical Impression: Noncompliance with medication regimen, Suicidal ideation Altered mental status Qualifiers: Altered mental status type: disorientation Qualified Code(s): R41.0 - Disorientation, unspecified Disposition: Admitted As Inpatient Condition: Good General Adult HPI - General Chief complaint: ED Altered Mental Status Stated complaint: SI/Altered Mental Status/decreased response Time Seen by Provider: 01/08/18 09:08 Source: patient, EMS Limitations: altered mental status Nursing Notes Reviewed: Yes Vital Signs Reviewed: Yes - History of Present Illness HPI Narrative: Patient is a 62-year-old female with history of diabetes, COPD, CAD presenting to the emergency department with complaints of altered mental status. Per EMS she was found on her loveseat sleeping and had been down for an unknown amount of time. She reportedly called her family and was telling them that she was suicidal this morning. Otherwise there were no pill bottles that EMS found surrounding her but she does take many prescription medications. Pain Scale: 2 - Related Data Home Medications Medication Instructions Recorded Confirmed ALPRAZolam [Xanax 1 MG Tablet] 1 mg PO TID PRN 06/27/17 06/27/17 Albuterol Sulfate [Ventolin Hfa] 2 puff IH Q4-6H PRN 06/27/17 06/27/17 Amitriptyline [Elavil] 50 mg PO HS 06/27/17 06/27/17 Aspirin [Lo-Dose Aspirin EC] 81 mg PO DAILY 06/27/17 06/27/17 Budesonide/Formoterol 160/4.5 2 puff IH BIDR 06/27/17 06/27/17 [Symbicort 160/4.5] HYDROcodone/Acet 10/325 mg [[place] 1 tab PO Q6HR PRN 06/27/17 06/27/17 10-325 mg] Losartan/Hydrochlorothiazide 1 tab PO BID 06/27/17 06/27/17 [Losartan-Hctz 50-12.5 mg Tab] Lovastatin [Mevacor] 20 mg PO HS 06/27/17 06/27/17 Metformin HCl [Glucophage] 1,000 mg PO BID 06/27/17 06/27/17 Metoprolol [Lopressor] 75 mg PO BID 06/27/17 06/27/17 Promethazine [Phenergan] 25 mg PO BID 06/27/17 06/27/17 Rabeprazole Sodium [Aciphex] 20 mg PO DAILY 06/27/17 06/27/17 Ranolazine [Ranexa] 500 mg PO BID 06/27/17 06/27/17 Previous Rx's Medication Instructions Recorded Levofloxacin [Levaquin] 750 mg PO DAILY #4 tablet 06/28/17 predniSONE [PredniSONE] 10 mg PO TAPER #10 tablet 06/28/17 Allergies Allergy/AdvReac Type Severity Reaction Status Date / Time Cephalosporins AdvReac Flushing Verified 01/08/18 09:09 Limitations: ROS unobtainable due to patients medical condition Past Medical History - Past Medical History Medical history: Reports: arthritis, COPD, coronary artery disease, diabetes, GERD, hyperlipidemia, hypertension, other Surgical history: Reports: angioplasty/stent, hysterectomy Psychiatric history: Reports: no psych history - Social History Smoking Status: Former smoker Smokeless Tobacco Status: No Alcohol use: Reports: none Drug use: Reports: none Physical Exam - General Limitations: altered mental status General appearance: alert, in no apparent distress - Head Head exam: atraumatic, normocephalic - Eye Eye exam: Present: normal appearance, PERRL - ENT ENT exam: normal exam, normal oropharynx, mucous membranes moist - Neck Neck exam: Present: normal inspection, full ROM, trachea midline - Chest Chest inspection: Present: normal inspection, symmetric chest wall rise. Absent: tenderness - Respiratory Respiratory exam: Present: normal lung sounds bilaterally. Absent: respiratory distress, wheezes, stridor - Cardiovascular Cardiovascular exam: Present: regular rate, normal rhythm, normal heart sounds - Abdominal Exam Abdominal exam: Present: soft, Non-Tender, normal bowel sounds. Absent: distention, guarding, rebound, rigidity - Extremities Exam Extremities exam: Present: normal inspection. Absent: pedal edema - Neurological Exam Neurological exam: Present: alert - Expanded Neurological Exam Patient oriented to: Present: person, place, time Speech: Present: fluid speech Coma Scale Eye Opening: Spontaneous Coma Scale Motor Response: Obeys Commands Coma Scale Verbal Response: Confused Coma Scale Total: 14 - Psychiatric Psychiatric exam: Present: normal affect, depressed, suicidal ideation - Expanded Psychiatric Exam Expanded psych exam: Present: poor eye contact, visual hallucinations (possible) - Skin Skin exam: Present: warm, dry, intact Course Course Narrative: Patient presenting with altered mental status and per EMS reports concern for suicidal ideation past day per family. On initial presentation patient is protecting her airway, answering questions appropriately but is tearful on exam. Workup including EKG, CXR, CT head, CBC, BMP, CK, Vital Signs Temperature 98.4 F 01/08/18 09:11 Pulse Rate 72 01/08/18 09:11 Respiratory Rate 28 01/08/18 09:11 Blood Pressure 144/68 01/08/18 09:11 O2 Sat by Pulse Oximetry 97 01/08/18 09:11 Temperature 98.4 F 01/08/18 09:11 Pulse Rate 74 01/08/18 12:04 Respiratory Rate 20 01/08/18 12:04 Blood Pressure 125/58 01/08/18 12:04 O2 Sat by Pulse Oximetry 98 01/08/18 12:04 Oxygen Delivery Oxygen Delivery Room Air Medical Decision Making - MDM Narrative Medical decision making narrative: Patient is a 62-year-old female presenting with altered mental status. Per family she was suicidal this morning but has no known ingestions. She was given Narcan in route by EMS without change. Workup for altered mental status initiated including laboratory work as well as CT scan and one view chest x-ray. Labwork was remarkable for hyperglycemia of 483, CORA with a creatinine of 1.41, glucose urea and slight ketonuria. CT head was unremarkable and one view chest x-ray stable. Patient denies active suicidal ideation by has been telling nurses that she is seeing things that are not there. Per pharmacy she has not taken her insulin for approximately 2 weeks. 1 L fluid bolus and 10 units of regular insulin given. She will require sitter given her AMS and history of suicidal ideation. Discussed the case with Dr. hampton, hospitalist who will admit the patient. Patient agrees with and understands course of treatment plan including plan for admission. All questions answered. - Medical Records Medical records reviewed: Yes I reviewed the patient's medical records. - Lab Data Lab results reviewed: Yes I reviewed the patient's lab results. Result diagrams: 01/08/18 09:17 01/08/18 09:17 Lab Results 01/08/18 01/08/18 01/08/18 Range/Units 09:17 09:17 09:17 WBC 9.9 (4.3-11.1) K/mcL RBC 5.67 H (3.82-4.97) M/mcL Hgb 15.2 (11.5-15.4) g/dL Hct 45.1 H (35.3-44.9) % MCV 79.5 L (83.0-100.0) fL MCH 26.8 L (28.0-33.3) pg MCHC 33.7 (31.6-35.5) g/dL RDW 13.9 (11.5-14.5) % Plt Count 243 (140-400) K/mcL MPV 11.5 (9.4-12.4) fL Immature Gran % 0.8 (0-4) % Seg Neutrophils % 66.4 % Lymphocytes % 23.7 % Monocytes % 8.0 % Eosinophils % 0.7 % Basophils % 0.4 % Neutrophils # 6.6 (1.6-8.9) K/mcL Lymphocytes # 2.3 (0.6-4.6) K/mcL Monocytes # 0.8 (0.0-1.3) K/mcL Eosinophils # 0.1 (0.0-0.6) K/mcL Basophils # 0.0 (0.0-0.2) K/mcL PT 12.6 H (9.4-12.1) Seconds INR 1.1 APTT 28.4 (26.0-36.0) Seconds Sodium 129 L (136-145) mEq/L Potassium 3.4 L (3.5-5.1) mEq/L Chloride 88 L (98-107) mEq/L Carbon Dioxide 26 (23-29) mEq/L BUN 26 H (8-23) mg/dL Creatinine 1.41 H (0.60-1.20) mg/dL Est GFR ( Amer) 46 L (> 60) Est GFR (Non-Af Amer) 38 L (> 60) BUN/Creatinine Ratio 18 (6-26) Glucose 483 H (70-105) mg/dL Calculated Osmolality 294 (280-300) Calcium 9.9 (8.6-10.3) mg/dL Total Bilirubin 0.5 (0.3-1.0) mg/dL Direct Bilirubin 0.1 (0.0-0.2) mg/dL Indirect Bilirubin 0.4 (0.0-1.2) mg/dL AST 12 L (13-39) Units/L ALT 10 (7-52) Units/L Alkaline Phosphatase 86 (34-104) Units/L Ammonia (16-53) mcmol/L Creatine Kinase 70 (30-223) Units/L Troponin I < 0.03 (< 0.04) ng/mL Serum Total Protein 7.2 (6.4-8.9) g/dL Albumin 4.0 (3.5-5.7) g/dL Globulin 3.2 (2.4-3.5) g/dL Albumin/Globulin Ratio 1.3 (1.1-2.2) TSH 0.524 (0.340-5.600) mcIU/mL Urine Color (Yellow) Urine Clarity (Clear) Urine pH (5.0-8.0) pH Units Ur Specific [place] (1.010-1.025) Urine Protein (Neg-Trace) mg/dL Urine Glucose (UA) (Normal) mg/dL Urine Ketones (Negative) mg/dL Urine Blood (Negative) Urine Nitrite (Negative) Urine Bilirubin (Negative) Urine Urobilinogen (Normal) mg/dL Ur Leukocyte Esterase (Negative) Urine Microscopic RBC (0-3) per hpf Urine Microscopic WBC (0-3) per hpf Ur Squamous Epith Cells (None-Few) per lpf Urine Bacteria (None-Few) per hpf Hyaline Casts (None-Few) per lpf Ur Culture Indicated? (NO) Salicylates 4.1 L (15.0-30.0) mg/dL Urine Opiates Screen (Uvovlv=296) ng/mL Acetaminophen < 10 L (10-20) mcg/mL Ur Barbiturates Screen (Rigcqf=612) ng/mL Ur Phencyclidine Scrn (Cutoff=25) ng/mL Ur Amphetamines Screen (Rrnsdw=2222) ng/mL U Benzodiazepines Scrn (Tprvvy=337) ng/mL Urine Cocaine Screen (Cutoff= 300) ng/mL U Marijuana (THC) Screen (Cutoff = 50) ng/mL Ur Drug Screen Interp Ethyl Alcohol < 10 (Less than 10) mg/dL 01/08/18 01/08/18 01/08/18 Range/Units 09:17 10:43 10:43 WBC (4.3-11.1) K/mcL RBC (3.82-4.97) M/mcL Hgb (11.5-15.4) g/dL Hct (35.3-44.9) % MCV (83.0-100.0) fL MCH (28.0-33.3) pg MCHC (31.6-35.5) g/dL RDW (11.5-14.5) % Plt Count (140-400) K/mcL MPV (9.4-12.4) fL Immature Gran % (0-4) % Seg Neutrophils % % Lymphocytes % % Monocytes % % Eosinophils % % Basophils % % Neutrophils # (1.6-8.9) K/mcL Lymphocytes # (0.6-4.6) K/mcL Monocytes # (0.0-1.3) K/mcL Eosinophils # (0.0-0.6) K/mcL Basophils # (0.0-0.2) K/mcL PT (9.4-12.1) Seconds INR APTT (26.0-36.0) Seconds Sodium (136-145) mEq/L Potassium (3.5-5.1) mEq/L Chloride (98-107) mEq/L Carbon Dioxide (23-29) mEq/L BUN (8-23) mg/dL Creatinine (0.60-1.20) mg/dL Est GFR ( Amer) (> 60) Est GFR (Non-Af Amer) (> 60) BUN/Creatinine Ratio (6-26) Glucose (70-105) mg/dL Calculated Osmolality (280-300) Calcium (8.6-10.3) mg/dL Total Bilirubin (0.3-1.0) mg/dL Direct Bilirubin (0.0-0.2) mg/dL Indirect Bilirubin (0.0-1.2) mg/dL AST (13-39) Units/L ALT (7-52) Units/L Alkaline Phosphatase (34-104) Units/L Ammonia 35 (16-53) mcmol/L Creatine Kinase (30-223) Units/L Troponin I (< 0.04) ng/mL Serum Total Protein (6.4-8.9) g/dL Albumin (3.5-5.7) g/dL Globulin (2.4-3.5) g/dL Albumin/Globulin Ratio (1.1-2.2) TSH (0.340-5.600) mcIU/mL Urine Color Yellow (Yellow) Urine Clarity Clear (Clear) Urine pH 6.0 (5.0-8.0) pH Units Ur Specific [place] > 1.030 H (1.010-1.025) Urine Protein Trace (Neg-Trace) mg/dL Urine Glucose (UA) >=1000 H (Normal) mg/dL Urine Ketones 15 H (Negative) mg/dL Urine Blood Trace H (Negative) Urine Nitrite Negative (Negative) Urine Bilirubin Negative (Negative) Urine Urobilinogen Normal (Normal) mg/dL Ur Leukocyte Esterase Moderate H (Negative) Urine Microscopic RBC 5-15 H (0-3) per hpf Urine Microscopic WBC TNTC H (0-3) per hpf Ur Squamous Epith Cells Many H (None-Few) per lpf Urine Bacteria None Seen (None-Few) per hpf Hyaline Casts None Seen (None-Few) per lpf Ur Culture Indicated? NO. A (NO) Salicylates (15.0-30.0) mg/dL Urine Opiates Screen Negative (Ctgzuh=588) ng/mL Acetaminophen (10-20) mcg/mL Ur Barbiturates Screen Negative (Qijdwf=054) ng/mL Ur Phencyclidine Scrn Negative (Cutoff=25) ng/mL Ur Amphetamines Screen Negative (Bztdgn=0426) ng/mL U Benzodiazepines Scrn Negative (Opqviq=453) ng/mL Urine Cocaine Screen Negative (Cutoff= 300) ng/mL U Marijuana (THC) Screen Negative (Cutoff = 50) ng/mL Ur Drug Screen Interp See Below Ethyl Alcohol (Less than 10) mg/dL - Radiology Data Radiology results reviewed: Yes I reviewed the patient's radiology results. Chest X-Ray 01/08/18 09:20 IMPRESSION: No acute cardiopulmonary disease. D/ / 01/08/2018 09:45:47 Farhat Chavez MD / karen Interpreting Provider: Farhat Chavez MD Head CT 01/08/18 09:20 IMPRESSION: No acute intracranial abnormality. D/ / 01/08/2018 09:56:39 Farhat Chavez MD / karen Interpreting Provider: Farhat Chavez MD - EKG Data EKG #1 EKG attestation: Yes I reviewed and interpreted this EKG. EKG results narrative: Normal sinus rhythm rate of 72. [place] 169, QRS 103, QT 422, QTC 484. T-wave in versions in V1 through V4. When compared with previous from 06/26/17 there are no acute changes.
[2018-01-08 09:34] LABS: Basophils % 0.4 %; Eosinophils # 0.1 K/mcL (0.0-0.6); Eosinophils % 0.7 %; Hematocrit 45.1 % (35.3-44.9); Hemoglobin 15.2 g/dL (11.5-15.4); Immature Granulocytes % 0.8 % (0-4); Lymphocytes # 2.3 K/mcL (0.6-4.6); Lymphocytes % 23.7 %; Mean Corpuscular HGB Conc 33.7 g/dL (31.6-35.5); Mean Corpuscular Hemoglobin 26.8 pg (28.0-33.3); Mean Corpuscular Volume 79.5 fL (83.0-100.0); Mean Platelet Volume 11.5 fL (9.4-12.4); Monocytes # 0.8 K/mcL (0.0-1.3); Neutrophils # 6.6 K/mcL (1.6-8.9); Platelet Count 243 K/mcL (140-400); Red Blood Count 5.67 M/mcL (3.82-4.97); Red Cell Distribution Width 13.9 % (11.5-14.5); Segmented Neutrophils % 66.4 %
[2018-01-08 09:43] LABS: INR 1.1; Prothrombin Time 12.6 Seconds (9.4-12.1)
[2018-01-08 09:46] LABS: Activated Partial Thrombo Time 28.4 Seconds (26.0-36.0)
[2018-01-08 09:54] LABS: Alanine Aminotransferase 10 Units/L (7-52); Albumin/Globulin Ratio 1.3 (1.1-2.2); Alkaline Phosphatase 86 Units/L (34-104); Aspartate Amino Transferase 12 Units/L (13-39); BUN/Creatinine Ratio 18 (6-26); Bilirubin,Direct 0.1 mg/dL (0.0-0.2); Bilirubin,Indirect 0.4 mg/dL (0.0-1.2); Bilirubin,Total 0.5 mg/dL (0.3-1.0); Blood Urea Nitrogen 26 mg/dL (8-23); Calcium 9.9 mg/dL (8.6-10.3); Carbon Dioxide 26 mEq/L (23-29); Chloride 88 mEq/L (98-107); Creatine Kinase 70 Units/L (30-223); Ethanol < 10 mg/dL (Less than 10); Globulin 3.2 g/dL (2.4-3.5); Glucose 483 mg/dL (70-105); Osmolality,Calculated 294 (280-300); Potassium 3.4 mEq/L (3.5-5.1); Sodium 129 mEq/L (136-145); Total Protein 7.2 g/dL (6.4-8.9); Troponin I < 0.03 ng/mL (< 0.04); eGFR For Non-African Americans 38 (> 60)
[2018-01-08] MEDS ORDERED: 0.9 % Sodium Chloride 1,000 ML IVC ONE ×2 (09:58→11:04)
[2018-01-08 10:08] LABS: Thyroid Stimulating Hormone 0.524 mcIU/mL (0.340-5.600)
[2018-01-08 10:52] LABS: Acetaminophen < 10 mcg/mL (10-20); Salicylate 4.1 mg/dL (15.0-30.0)
[2018-01-08 10:58] LABS: Bilirubin,Urine Negative (Negative); Blood,Urine Trace (Negative); Clarity,Urine Clear (Clear); Color,Urine Yellow (Yellow); Glucose,Urine (UA) >=1000 mg/dL (Normal); Ketones,Urine 15 mg/dL (Negative); Leukocyte Esterase,Urine Moderate (Negative); Nitrite,Urine Negative (Negative); Protein,Urine Trace mg/dL (Neg-Trace); Specific Gravity,Urine > 1.030 (1.010-1.025); Urobilinogen,Urine Normal (Normal)
[2018-01-08 10:59] LABS: Bacteria,Urine None Seen per hpf (None-Few); Hyaline Casts,Urine None Seen per lpf (None-Few); Squamous Epithelial Cell,Urine Many per lpf (None-Few); WBC,Urine TNTC per hpf (0-3)
[2018-01-08 11:10] LABS: Amphetamine Screen,Urine Negative ng/mL (Cutoff=1000); Barbiturate Screen,Urine Negative ng/mL (Cutoff=200); Benzodiazepines Screen,Urine Negative ng/mL (Cutoff=200); Cannabinoid Screen,Urine Negative ng/mL (Cutoff = 50); Cocaine Screen,Urine Negative ng/mL (Cutoff= 300); Opiate Screen,Urine Negative ng/mL (Cutoff=300); Phencyclidine Screen,Urine Negative ng/mL (Cutoff=25)
[2018-01-08] MEDS ORDERED: Naloxone 0.4 MG/ML INJ IVP PRN (12:01)
[2018-01-08] MEDS ORDERED: D5% in Water 1,000 ML IVC PRN (12:02)
[2018-01-08] MEDS ORDERED: *HR* Dextrose 50 % in Water (Syg) 50 ML SYRINGE IVP PRN (12:02)
[2018-01-08] MEDS ORDERED: Dextrose Gel 15 GM/37.5 ML TUBE PO PRN ×2 (12:02)
[2018-01-08] MEDS ORDERED: Insulin Human Regular 10 UNIT in 0.9 % Sodium Chloride 10 ML IV ONE (12:05)
[2018-01-08] MEDS ORDERED: Nitroglycerin 0.4 MG TAB.SUBL SL PRN (14:12)
[2018-01-08] MEDS ORDERED: Ipratropium/Albuterol Neb 3 ML IH PRN (14:12)
--- NOTE | 2018-01-08 14:53 | Internal Med History&Physical ---
Date of Encounter: 01/08/18 Time of Encounter: 14:51 Internal Medicine - H&P: HPI Chief complaint: I was not doing what i should do Admitted From: Home Plans for Post Hospital Care: Home History of present illness: Ms. Valle is a 62 year old female with PMH of DM, CAD, COPD She is seen and evaluated at the bedside When inquired of as to her reason for coming , she states " I have not been doing what I should be doing". Patient reports not taking her insulin for 3 weeks, for some unknown reason. She also states she has been having poor oral intake. She states compliance with the rest of her meds She reports for the past 3 nights, she has been waking her son up at night (who she lives with), and telling him about being taken to [facility] with some other women(none of this is true). The patient denies auditory hallucinations, she denies illicit drug use, denies chest/respiratory/abdominal or cardiac symptoms She also called family to report suicidal ideation this mrn. She denies any psych hx, or prior hx of same Work up in ER showed CORA with Hyperglycemia and hypokalemia. UA showed mild LE and no nitries, concentrated with many epithelial cells. CXR and Head CT unremarkable She received IVF in th ER as well as Regular insulin and is placed on observation for hyperglycemia, confusion and suicidal dieation She is currently in stable clinical condition, she is full code Past Med Surg Social Fam HX - Past Medical History Medical history: arthritis, COPD, coronary artery disease, diabetes, GERD, hyperlipidemia, hypertension, other Additional medical history: sleep apnea, anemia Psychiatric history: no psych history - Past Surgical History Surgical History: angioplasty/stent, hysterectomy, knee replacement Additional surgical history: knee replacement x2, carpitunnel bilateral - Social History Smoking Status: Former smoker Smokeless Tobacco Status: No Alcohol use: none Drug use: none - Family History Father Hx Family Cardiac Disorders: Yes Hx Family Cancer: Yes Internal Medicine - H&P: Meds ALPRAZolam [Xanax 1 MG Tablet] 1 mg PO TID PRN 06/27/17 [History] Albuterol Sulfate [Ventolin Hfa] 2 puff IH Q4-6H PRN 06/27/17 [History] Amitriptyline [Elavil] 50 mg PO HS 06/27/17 [History] Aspirin [Lo-Dose Aspirin EC] 81 mg PO DAILY 06/27/17 [History] Budesonide/Formoterol 160/4.5 [Symbicort 160/4.5] 2 puff IH BIDR 06/27/17 [History] HYDROcodone/Acet 10/325 mg [[place] 10-325 mg] 1 tab PO Q6HR PRN 06/27/17 [History] Losartan/Hydrochlorothiazide [Losartan-Hctz 50-12.5 mg Tab] 1 tab PO BID 06/27/17 [History] Lovastatin [Mevacor] 20 mg PO HS 06/27/17 [History] Metformin HCl [Glucophage] 1,000 mg PO BID 06/27/17 [History] Metoprolol [Lopressor] 75 mg PO BID 06/27/17 [History] Promethazine [Phenergan] 25 mg PO BID 06/27/17 [History] Rabeprazole Sodium [Aciphex] 20 mg PO DAILY 06/27/17 [History] Ranolazine [Ranexa] 500 mg PO BID 06/27/17 [History] Insulin ASPART [Novolog Flexpen] 35 unit SQ DAILY 01/08/18 [History] Insulin NPH Human Isophane [Novolin N] 40 unit SQ BID 01/08/18 [History] Ipratropium/Albuterol Sulfate [Iprat-Albut 0.5-3(2.5) mg/3 ml] 3 ml IH Q6H PRN 01/08/18 [History] Nitroglycerin [Nitrostat] 0.4 mg SL AD PRN 01/08/18 [History] Allergy/AdvReac Type Severity Reaction Status Date / Time Cephalosporins AdvReac Flushing Verified 01/08/18 09:09 All Systems PM: A 10-system review of systems was performed and is negative for pertinent findings except as documented above in the HPI. - Constitutional Constitutional: no chills, no fever(s), no night sweats - EENT Eyes: no change in vision, no discharge, no pain, no photophobia Ears: no ear discharge, no ear pain, no tinnitus Nose, mouth and throat: no dysphagia, no nasal discharge, no neck pain, no sore throat - Cardiovascular Cardiovascular ROS IM: no chest pain, no diaphoresis, no dyspnea, no lightheadedness, no palpitations, no syncope - Respiratory Respiratory: no cough, no dyspnea, no wheezing, no excessive phlegm production - Gastrointestinal Gastrointestinal: no abdominal pain, no diarrhea, no hematemesis, no hematochezia, no melena, no nausea, no vomiting - Genitourinary Genitourinary: no change in urinary stream, no dysuria, no flank pain, no hematuria - Musculoskeletal Musculoskeletal ROS IM: no numbness, no tingling - Integumentary Integumentary IM: no rash, no unusual bruising - Neurological Neurological ROS: confusion, no convulsions, no focal weakness, no numbness, no tingling, no tremor(s) - Psychiatric Psychiatric: behavioral changes, suicidal ideation - Hematologic/Lymphatic Hematologic/Lymphatic: no easy bruising - Constitutional Vitals: Temp Pulse Resp BP Pulse Ox 98.4 F 86 20 141/68 97 01/08/18 09:11 01/08/18 13:22 01/08/18 13:22 01/08/18 13:22 01/08/18 13:22 Exam: VSS, Stable Gen: Calm, not in distress, speaks full sentences HEENT: Moist oral mucosa, sclera anicteric, not pale Chest: Equal chest movement bilaterally REsp: CTAB Heart: S1, S2, only, no m/g/r Abdomen: Obese, soft, not tender, BS present in al quadrants Extremities: Joint inspection is WNL, no pedal edema, pulses present bilaterally Neuro: AAOX3, no speech deficits, moves all extremities equally, no facial paralysis Psych: Affect is appropriate Internal Med - H&P Results - Labs CBC & Chem 7: 01/08/18 09:17 01/08/18 09:17 Labs: Short CBC 01/08/18 Range/Units 09:17 WBC 9.9 (4.3-11.1) K/mcL Hgb 15.2 (11.5-15.4) g/dL Hct 45.1 H (35.3-44.9) % Plt Count 243 (140-400) K/mcL Neutrophils # 6.6 (1.6-8.9) K/mcL BMP 01/08/18 09:17 Sodium 129 L Potassium 3.4 L Chloride 88 L Carbon Dioxide 26 BUN 26 H Creatinine 1.41 H Glucose 483 H Calcium 9.9 Cardiac Enzymes 01/08/18 Range/Units 09:17 Troponin I < 0.03 (< 0.04) ng/mL Liver Function 01/08/18 Range/Units 09:17 Total Bilirubin 0.5 (0.3-1.0) mg/dL Direct Bilirubin 0.1 (0.0-0.2) mg/dL AST 12 L (13-39) Units/L ALT 10 (7-52) Units/L Alkaline Phosphatase 86 (34-104) Units/L Albumin 4.0 (3.5-5.7) g/dL Urine 01/08/18 Range/Units 10:43 Urine Color Yellow (Yellow) Urine Clarity Clear (Clear) Urine pH 6.0 (5.0-8.0) pH Units Ur Specific [place] > 1.030 H (1.010-1.025) Urine Protein Trace (Neg-Trace) mg/dL Urine Glucose (UA) >=1000 H (Normal) mg/dL - Impressions ITS Impressions Chest X-Ray 01/08/18 09:20 IMPRESSION: No acute cardiopulmonary disease. D/ / 01/08/2018 09:45:47 Farhat Chavez MD / karen Interpreting Provider: Farhat Chavez MD Head CT 01/08/18 09:20 IMPRESSION: No acute intracranial abnormality. D/ / 01/08/2018 09:56:39 Farhat Chavez MD / karen Interpreting Provider: Farhat Chavez MD - Assessment and plan (1) Hyperglycemia Current Visit: Yes Status: Acute Assessment and plan: Improving Resume insulin, ADA diet, monitor FS ACHS A1C with mrn labs (2) Confusion Current Visit: Yes Status: Acute Assessment and plan: Likely due to hyperglycemia and CORA Send urine culture-UA is contaminated, no antibiotics indicated at this time (3) Noncompliance with medication regimen Current Visit: Yes Status: Acute Assessment and plan: SW eval prior to discharge (4) Suicidal ideation Current Visit: Yes Status: Acute Assessment and plan: Psych eval 1: 1 for now utox is negative (5) DVT prophylaxis Current Visit: Yes Status: Acute Assessment and plan: SQ heparin (6) Diabetes mellitus Current Visit: Yes Status: Chronic Assessment and plan: as in hyperglycemia 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 usp insulin use: with rn long term care use Diabetes mellitus complication status: without complication Qualified Code(s): E11.9 - Type 2 diabetes mellitus without complications; Z79.4 - intermediate (current) use of insulin (7) Hypertension Current Visit: Yes Status: Chronic Assessment and plan: continue home meds Qualifiers: Hypertension type: essential hypertension Qualified Code(s): I10 - Essential (primary) hypertension - Time Spent With Patient Total time spent is greater than 50% in coordination of care (as documented) at patient's floor/unit and/or counseling patient:
[2018-01-08] MEDS: Insulin LISPRO 300 UNITS/3 ML VIAL SQ SCH ×3 (17:57→20:57)
[2018-01-08] MEDS: Budesonide/Formoterol 160/4.5 1 PUFF INH IH SCH (20:44)
[2018-01-08] MEDS: Ranolazine 500 MG TAB.ER.12H PO SCH (20:56)
[2018-01-08] MEDS: Losartan/HCTZ 50-12.5 TABLET PO SCH (20:56)
[2018-01-08] MEDS ORDERED: Insulin DETEMIR 100 UNIT/ML X5UNITS SQ SCH (21:00)
[2018-01-08] MEDS: *HR* HYDROcodone/Acet 10/325 mg TABLET PO PRN (21:16)
[2018-01-09] MEDS: ALPRAZolam 1 MG TABLET PO PRN ×2 (04:12→22:30)
[2018-01-09 04:57] LABS: Basophils # 0.1 K/mcL (0.0-0.2); Basophils % 0.6 %; Eosinophils # 0.3 K/mcL (0.0-0.6); Eosinophils % 2.5 %; Hematocrit 37.7 % (35.3-44.9); Hemoglobin 12.9 g/dL (11.5-15.4); Immature Granulocytes % 0.9 % (0-4); Lymphocytes # 3.2 K/mcL (0.6-4.6); Lymphocytes % 32.1 %; Mean Corpuscular HGB Conc 34.2 g/dL (31.6-35.5); Mean Corpuscular Hemoglobin 27.3 pg (28.0-33.3); Mean Corpuscular Volume 79.9 fL (83.0-100.0); Mean Platelet Volume 12.1 fL (9.4-12.4); Monocytes # 0.9 K/mcL (0.0-1.3); Monocytes % 8.5 %; Neutrophils # 5.6 K/mcL (1.6-8.9); Platelet Count 207 K/mcL (140-400); Red Blood Count 4.72 M/mcL (3.82-4.97); Red Cell Distribution Width 14.4 % (11.5-14.5); Segmented Neutrophils % 55.4 %
[2018-01-09] MEDS: *HR* Enoxaparin 40 MG/0.4 ML SYRINGE SQ SCH (05:35)
[2018-01-09] MEDS: Budesonide/Formoterol 160/4.5 1 PUFF INH IH SCH ×2 (07:59→20:14)
[2018-01-09] MEDS: Insulin LISPRO 300 UNITS/3 ML VIAL SQ SCH ×7 (08:30→20:28)
[2018-01-09 08:32] LABS: Estimated Average Glucose 358 mg/dl; Hemoglobin A1C 14.1 %
[2018-01-09] MEDS: Ranolazine 500 MG TAB.ER.12H PO SCH ×3 (08:56→20:27)
[2018-01-09] MEDS: Losartan/HCTZ 50-12.5 TABLET PO SCH ×2 (08:57→20:27)
[2018-01-09] MEDS: Aspirin Enteric Coated 81 MG Tablet PO SCH (08:57)
[2018-01-09] MEDS: *HR* HYDROcodone/Acet 10/325 mg TABLET PO PRN ×2 (13:27→20:27)
--- NOTE | 2018-01-09 16:25 | Internal Med Progress Note ---
Hospitalist Progress Note - Encounter Date of Encounter: 01/09/18 Time of Encounter: 11:00 - Subjective Interval History: Pt was seen and examined at bed side Denied any CP / SOB Denied any active suicidal ideation Denied any hallucinations She does have depression - Exam Vitals: Temp Pulse Resp BP Pulse Ox 98.0 F 75 16 113/72 95 01/09/18 03:15 01/09/18 03:15 01/09/18 07:59 01/09/18 03:15 01/09/18 07:59 Exam: Gen: Alert, awake, Oriented to time,place and person Chest: Diminished breath sounds B/L, No wheezing, No crackles, No rales Heart: S1S2+ RRR No murmurs Abd: Soft, NT, BS +, No organomegaly Ext: No edema, pulses are palpable, No calf tenderness Neuro : Benign findings Skin: No rash. - Assessment and Plan (1) Diabetes mellitus Current Visit: Yes Status: Chronic Assessment and Plan: Uncontrolled HbA1C 14.1 Counseled about non compliance ADA diet Increased Levemir to 30 U BID Inc Prandial insulin to 10 U TID cont ISS check FLP in AM Still need close monitoring of her BS since they are still in 300's range (2) Hyperglycemia Current Visit: Yes Status: Acute Assessment and Plan: Improving changed Insulin regimen (3) Suicidal ideation Current Visit: Yes Status: Acute Assessment and Plan: Due to depression denied any active suicidal ideation appreciate psychiatric recommendations cont close monitoring cont 1: 1 (4) Noncompliance with medication regimen Current Visit: Yes Status: Acute Assessment and Plan: SW eval prior to discharge (5) Hypertension Current Visit: Yes Status: Chronic Assessment and Plan: stable with current regimen continue home meds (6) DVT prophylaxis Current Visit: Yes Status: Acute Assessment and Plan: SQ heparin (7) Confusion Current Visit: Yes Status: Acute Assessment and Plan: Likely due to metabolic encephalopathy improved (8) CORA (acute kidney injury) Current Visit: Yes Status: Acute Assessment and Plan: Improved with IV hydration - Time Spent with Patient Total time spent is greater than 50% in coordination of care (as documented) at patient's floor/unit and/or counseling patient: Internal Medicine: Result - Labs CBC & Chem 7: 01/09/18 03:26 01/09/18 03:26 Labs: Short CBC 01/09/18 Range/Units 03:26 WBC 10.1 (4.3-11.1) K/mcL Hgb 12.9 D (11.5-15.4) g/dL Hct 37.7 (35.3-44.9) % Plt Count 207 (140-400) K/mcL Neutrophils # 5.6 (1.6-8.9) K/mcL BMP 01/09/18 03:26 Sodium 133 L Potassium 3.0 L Chloride 96 L Carbon Dioxide 24 BUN 22 Creatinine 1.16 Glucose 296 H Calcium 9.0 - ABG Interpretation ABG results: PT/INR, D-dimer PT 12.6 Seconds (9.4-12.1) H 01/08/18 09:17 Consult Discharge Plan - Plan Referrals: NONE,PCP [Primary Care Provider] - __ (1) Diabetes mellitus 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
--- NOTE | 2018-01-09 17:29 | Consult Note ---
Date of Encounter: 01/09/18 Time of Encounter: 15:20 Assessment & Recommendation (1) Depressed Status: Acute Qualifiers: Depression Type: unspecified Qualified Code(s): F32.9 - Major depressive disorder, single episode, unspecified History of Present Illness Patient: new to practice Requesting Physician: Jose R Hunt MD Reason for consult: Possible passive suicide attempt. Has 1:1 sitter ordered by medical History of present illness: Ms. Valle is a 62 year old female who was admitted to the medical floor several days ago for hypergycemia, secondary to not taking her insulin at home and requiring the medical admission. It was reported that she stopped taking her insulin several weeks ago and her glucose was elevated in it that is potentially a suicide attempt. Patient has a history of taking Xanax for anxiety, but there were no benzodiazepines in her urine drug screen. Patient denies to me that she was ever actively suicidal. When I spoke with the patient and explained what my understanding of the situation was and why I was asked to come talk to her, she states that it is correct. She denies that it was ever a suicide attempt, but she does admit to self neglect and self-care and that she stopped taking her insulin and several rather meds about 3 weeks ago. She told me she has been recently stressed the last couple months, that she moved to [place] from [place]. She states that she had been living with her daughter in [place] and life was fairly stable. She moved to [place] to help her son out, who is going through a divorce. She states that she is currently living with him and taking care of his son, her 7-year-old grandson. She states that this is very stressful. She also acknowledges that she has some increasing financial stresses right now in making a car payment for new car that she just bought. She states that her son is in financial problems and she has been giving her money to him, so she is not able to take care of her own self financially. She states "I talked to God and I keep having all these terrible thoughts". She states that she feels very anxious and fearful for her family something bad is going to happen. She states that with all the stresses, she had been prescribed Xanax to help with the anxiety by Dr. Vang. She does not believe she was overusing or abusing them. She states that she got more depression, got confused about medications and what she should be doing with the medications. She states that she is experiencing low energy, feeling sad and depressed, problems with focus and concentration. She denies any hopelessness and helplessness, but feels overwhelmed. Her appetite is okay. Her sleep is problematic with at times increase sleep, times not being able to sleep. She denies any impulsive spending, auditory or visual hallucinations. She denies going days without need for sleep. She describes all of the more so as being anxious and intrusive thoughts regarding harm or something bad about to happen to her family with all the changes that they are going through. "This is all very stressful". She has not been seeing anybody in outpatient counseling. She thinks it may be helpful. She believes that it may be helpful to be admitted to for couple days for stabilization and for assistance with her mental health; starting on an anti-depressants/anti-anxiety medication. She wants to talk to her daughter and son first to see if they know of any community resources to help her and what medications they are on. She is not being discharged from medical and asks me to follow up with her tomorrow to see what she finds out and how she is feeling. CC: Jose R Hunt MD Past Med Surg Social Fam HX - Past Medical History Source: patient Medical history: arthritis, COPD, coronary artery disease, diabetes, GERD, hyperlipidemia, hypertension, other - Past Psychiatric History Psychiatric history: Reports: other (anxiety treated by family doc) Family psychiatric history: Yes (daughter and son depression/anxiety) Family History of Suicide: None - Past Surgical History Surgical History: angioplasty/stent, hysterectomy - Social History Smoking Status: Former smoker Smokeless Tobacco Status: No Alcohol use: none Drug use: none Occupational status: retired Current living situation: Home, With Family Activity Level: Independent ambulation Recent Out of Country Travel Within the Last 8 Weeks: No Exposure or Possible Exposure to Illness During Travel: No - Family History Father Hx Family Cardiac Disorders: Yes Hx Family Cancer: Yes Medications & Allergies ALPRAZolam [Xanax 1 MG Tablet] 1 mg PO TID PRN 06/27/17 [History] Albuterol Sulfate [Ventolin Hfa] 2 puff IH Q4-6H PRN 06/27/17 [History] Amitriptyline [Elavil] 50 mg PO HS 05/07/18 [History] Aspirin [Lo-Dose Aspirin EC] 81 mg PO DAILY 06/27/17 [History] Budesonide/Formoterol 160/4.5 [Symbicort 160/4.5] 2 puff IH BIDR 06/27/17 [H istory] HYDROcodone/Acet 10/325 mg [[place] 10-325 mg] 1 tab PO Q6HR PRN 06/27/17 [History] Losartan/Hydrochlorothiazide [Losartan-Hctz 50-12.5 mg Tab] 1 tab PO BID 06/27/17 [History] Lovastatin [Mevacor] 20 mg PO HS 06/27/17 [History] Metformin HCl [Glucophage] 1,000 mg PO BID 06/27/17 [History] Metoprolol [Lopressor] 75 mg PO BID 06/27/17 [History] Promethazine [Phenergan] 25 mg PO BID 06/27/17 [History] Rabeprazole Sodium [Aciphex] 20 mg PO DAILY 06/27/17 [History] Ranolazine [Ranexa] 500 mg PO BID 06/27/17 [History] Ipratropium/Albuterol Sulfate [Iprat-Albut 0.5-3(2.5) mg/3 ml] 3 ml IH Q6H PRN 01/08/18 [History] Nitroglycerin [Nitrostat] 0.4 mg SL AD PRN 01/08/18 [History] Amoxicillin/Clavulanate [Augmentin] 875 mg PO BIDWM #10 tablet 01/10/18 [Rx] Insulin ASPART [Novolog Flexpen] 12 unit SQ TID #0 01/10/18 [Rx] Insulin DETEMIR [Levemir] 35 unit SQ BID [id number] 01/10/18 [Rx] Phenazopyridine [Pyridium] 100 mg PO BID #10 tablet 01/10/18 [Rx] Allergy/AdvReac Type Severity Reaction Status Date / Time Cephalosporins AdvReac [place] Verified 01/08/18 09:09 Psychiatry Exam - Constitutional Vitals: Temp Pulse Resp BP Pulse Ox 98.0 F 75 16 113/72 95 01/09/18 03:15 01/09/18 03:15 01/09/18 07:59 01/09/18 03:15 01/09/18 07:59 General appearance: age & developmentally appropriate, obese, other (REsting in bed with hospital gown on and sheets covering herself appropriately) - Psychiatric Patient Orientation: Yes Person, Yes Time, Yes Place, Yes Circumstance Level of alertness: Alert Behavior: anxious, tearful Psychomotor activity: Normal Eye Contact: Fleeting Contact Mood Description: Depressed, Anxious Affect description: congruent with mood Speech Volume: Normal Speech pattern: normal rate, normal rhythm, normal tone, fluent Language & Vocabulary: consistent with education Thought Process: Intact, Linear Thought Content: Yes Suicidal ideation (denies active, but neglecting self medical care/passive process?) Attention Span Ability: Capable of Focused Attention Memory Description: Grossly Intact Patient Reliability: Reliable Historian Fund of knowledge: Yes average Intelligence Estimate: Average Judgment: Fair Insight: Partial Results - Labs Labs: Laboratory Last Values WBC 10.1 K/mcL (4.3-11.1) 01/09/18 03:26 RBC 4.72 M/mcL (3.82-4.97) 01/09/18 03:26 Hgb 12.9 g/dL (11.5-15.4) D 01/09/18 03:26 Hct 37.7 % (35.3-44.9) 01/09/18 03:26 MCV 79.9 fL (83.0-100.0) L 01/09/18 03:26 MCH 27.3 pg (28.0-33.3) L 01/09/18 03:26 MCHC 34.2 g/dL (31.6-35.5) 01/09/18 03:26 RDW 14.4 % (11.5-14.5) 01/09/18 03:26 Plt Count 207 K/mcL (140-400) 01/09/18 03:26 MPV 12.1 fL (9.4-12.4) 01/09/18 03:26 Immature Gran % 0.9 % (0-4) 01/09/18 03:26 Seg Neutrophils % 55.4 % 01/09/18 03:26 Lymphocytes % 32.1 % 01/09/18 03:26 Monocytes % 8.5 % 01/09/18 03:26 Eosinophils % 2.5 % 01/09/18 03:26 Basophils % 0.6 % 01/09/18 03:26 Neutrophils # 5.6 K/mcL (1.6-8.9) 01/09/18 03:26 Lymphocytes # 3.2 K/mcL (0.6-4.6) 01/09/18 03:26 Monocytes # 0.9 K/mcL (0.0-1.3) 01/09/18 03:26 Eosinophils # 0.3 K/mcL (0.0-0.6) 01/09/18 03:26 Basophils # 0.1 K/mcL (0.0-0.2) 01/09/18 03:26 PT 12.6 Seconds (9.4-12.1) H 01/08/18 09:17 INR 1.1 01/08/18 09:17 APTT 28.4 Seconds (26.0-36.0) 01/08/18 09:17 Sodium 133 mEq/L (136-145) L 01/09/18 03:26 Potassium 3.0 mEq/L (3.5-5.1) L 01/09/18 03:26 Chloride 96 mEq/L (98-107) L 01/09/18 03:26 Carbon Dioxide 24 mEq/L (23-29) 01/09/18 03:26 BUN 22 mg/dL (8-23) 01/09/18 03:26 Creatinine 1.16 mg/dL (0.60-1.20) 01/09/18 03:26 Est GFR ( Amer) 57 (> 60) L 01/09/18 03:26 Est GFR (Non-Af Amer) 47 (> 60) L 01/09/18 03:26 BUN/Creatinine Ratio 19 (6-26) 01/09/18 03:26 Glucose 296 mg/dL (70-105) H 01/09/18 03:26 POC Glucose 258 mg/dL (70-99) H 01/09/18 08:27 Est Mean Plasma Glucose 358 mg/dl 01/09/18 03:26 Hemoglobin A1c 14.1 % (-5.6) H 01/09/18 03:26 Calculated Osmolality 290 (280-300) 01/09/18 03:26 Calcium 9.0 mg/dL (8.6-10.3) 01/09/18 03:26 Total Bilirubin 0.5 mg/dL (0.3-1.0) 01/08/18 09:17 Direct Bilirubin 0.1 mg/dL (0.0-0.2) 01/08/18 09:17 Indirect Bilirubin 0.4 mg/dL (0.0-1.2) 01/08/18 09:17 AST 12 Units/L (13-39) L 01/08/18 09:17 ALT 10 Units/L (7-52) 01/08/18 09:17 Alkaline Phosphatase 86 Units/L (34-104) 01/08/18 09:17 Ammonia 35 mcmol/L (16-53) 01/08/18 09:17 Creatine Kinase 70 Units/L (30-223) 01/08/18 09:17 Troponin I < 0.03 ng/mL (< 0.04) 01/08/18 09:17 Serum Total Protein 7.2 g/dL (6.4-8.9) 01/08/18 09:17 Albumin 4.0 g/dL (3.5-5.7) 01/08/18 09:17 Globulin 3.2 g/dL (2.4-3.5) 01/08/18 09:17 Albumin/Globulin Ratio 1.3 (1.1-2.2) 01/08/18 09:17 TSH 0.524 mcIU/mL (0.340-5.600) 01/08/18 09:17 Urine Color Yellow (Yellow) 01/08/18 10:43 Urine Clarity Clear (Clear) 01/08/18 10:43 Urine pH 6.0 pH Units (5.0-8.0) 01/08/18 10:43 Ur Specific [place] > 1.030 (1.010-1.025) H 01/08/18 10:43 Urine Protein Trace mg/dL (Neg-Trace) 01/08/18 10:43 Urine Glucose (UA) >=1000 mg/dL (Normal) H 01/08/18 10:43 Urine Ketones 15 mg/dL (Negative) H 01/08/18 10:43 Urine Blood Trace (Negative) H 01/08/18 10:43 Urine Nitrite Negative (Negative) 01/08/18 10:43 Urine Bilirubin Negative (Negative) 01/08/18 10:43 Urine Urobilinogen Normal mg/dL (Normal) 01/08/18 10:43 Ur Leukocyte Esterase Moderate (Negative) H 01/08/18 10:43 Urine Microscopic RBC 5-15 per hpf (0-3) H 01/08/18 10:43 Urine Microscopic WBC TNTC per hpf (0-3) H 01/08/18 10:43 Ur Squamous Epith Cells Many per lpf (None-Few) H 01/08/18 10:43 Urine Bacteria None Seen per hpf (None-Few) 01/08/18 10:43 Hyaline Casts None Seen per lpf (None-Few) 01/08/18 10:43 Ur Culture Indicated? NO. (NO) A 01/08/18 10:43 Salicylates 4.1 mg/dL (15.0-30.0) L 01/08/18 09:17 Urine Opiates Screen Negative ng/mL (Wzyrxo=819) 01/08/18 10:43 Acetaminophen < 10 mcg/mL (10-20) L 01/08/18 09:17 Ur Barbiturates Screen Negative ng/mL (Mxbjcz=792) 01/08/18 10:43 Ur Phencyclidine Scrn Negative ng/mL (Cutoff=25) 01/08/18 10:43 Ur Amphetamines Screen Negative ng/mL (Rjkflj=0845) 01/08/18 10:43 U Benzodiazepines Scrn Negative ng/mL (Mxxjte=143) 01/08/18 10:43 Urine Cocaine Screen Negative ng/mL (Cutoff= 300) 01/08/18 10:43 U Marijuana (THC) Screen Negative ng/mL (Cutoff = 50) 01/08/18 10:43 Ur Drug Screen Interp See Below 01/08/18 10:43 Ethyl Alcohol < 10 mg/dL (Less than 10) 01/08/18 09:17 Consult Discharge Plan - Plan Additional Instructions: [facility]- 01/27/2018 at 12:30 Referrals: Ena Diaz MD [Partnered Physician] - 03/08/18 10:40 am NONE,PCP [Primary Care Provider] - Prescriptions: Amoxicillin/Clavulanate [Augmentin] 875 mg PO BIDWM #10 tablet Phenazopyridine [Pyridium] 100 mg PO BID #10 tablet
[2018-01-09] MEDS: Insulin DETEMIR 100 UNIT/ML X5UNITS SQ SCH (20:27)
[2018-01-10] MEDS: *HR* Enoxaparin 40 MG/0.4 ML SYRINGE SQ SCH (05:51)
[2018-01-10 06:40] LABS: BUN/Creatinine Ratio 25 (6-26); Blood Urea Nitrogen 26 mg/dL (8-23); Calcium 8.3 mg/dL (8.6-10.3); Carbon Dioxide 25 mEq/L (23-29); Chloride 97 mEq/L (98-107); Chol/HDL Ratio 3.2 (0-4.9); Cholesterol 128 mg/dL (< 200); Glucose 287 mg/dL (70-105); HDL Cholesterol 40 mg/dL (40-59); LDL Cholesterol,Calculated 45 mg/dL (0-99); Osmolality,Calculated 289 (280-300); Potassium 3.3 mEq/L (3.5-5.1); Sodium 132 mEq/L (136-145); Triglycerides 215 mg/dL (< 150); eGFR For Non-African Americans 52 (> 60)
[2018-01-10 06:44] LABS: Bilirubin,Urine Negative (Negative); Blood,Urine Negative (Negative); Clarity,Urine Clear (Clear); Color,Urine Yellow (Yellow); Glucose,Urine (UA) >=1000 mg/dL (Normal); Ketones,Urine Negative (Negative); Leukocyte Esterase,Urine Small (Negative); Nitrite,Urine Negative (Negative); Protein,Urine Negative (Neg-Trace); Specific Gravity,Urine 1.007 (1.010-1.025); Urobilinogen,Urine Normal (Normal)
[2018-01-10 06:49] LABS: Bacteria,Urine None Seen per hpf (None-Few); Hyaline Casts,Urine None Seen per lpf (None-Few); RBC,Urine 0-3 per hpf (0-3); Squamous Epithelial Cell,Urine Moderate per lpf (None-Few); WBC,Urine 15-30 per hpf (0-3)
--- NOTE | 2018-01-10 08:14 | Electrocardiograph Report ---
[address] [place], [place] [address] Test Date: 2018-01-08 Pat Name: Sallie Valle Department: [id number] Room: 3B36 Gender: F Sole Rougher: : 1955 Requested By: Mirela Montanez Order Number: [id number] Reading MD: Solomon Zavaleta Measurements Intervals [place] Rate: 72 P: 53 [place]: 169 QRS: 8 QRSD: 103 T: 28 QT: 442 QTc: 484 Interpretive Statements Sinus rhythm possible Inferior infarct, old Electronically Signed On 01-10-2018 8:12:36 EST by Solomon Zavaleta
[2018-01-10] MEDS: Aspirin Enteric Coated 81 MG Tablet PO SCH (09:27)
[2018-01-10] MEDS: Insulin DETEMIR 100 UNIT/ML X5UNITS SQ SCH (09:28)
[2018-01-10] MEDS: Ranolazine 500 MG TAB.ER.12H PO SCH (09:28)
[2018-01-10] MEDS: Insulin LISPRO 300 UNITS/3 ML VIAL SQ SCH ×6 (09:29→17:04)
[2018-01-10] MEDS: *HR* HYDROcodone/Acet 10/325 mg TABLET PO PRN (09:30)
[2018-01-10] MEDS: Losartan/HCTZ 50-12.5 TABLET PO SCH (09:35)
[2018-01-10] MEDS: Budesonide/Formoterol 160/4.5 1 PUFF INH IH SCH (11:37)
--- NOTE | 2018-01-10 15:09 | Discharge Summary ---
- NOTES TO OUTPATIENT PROVIDER Notes to Outpatient Provider: Please follow up with PCP in one week Orders not resulted at time of discharge: Pending orders 01/09/18 12:30 Culture,Urine [RM] Routine 01/10/18 06:19 Culture,Urine [RM] Routine Date of Encounter: 01/10/18 Time of Encounter: 15:09 - Discharge Diagnosis (1) Hyperglycemia Priority: Primary Status: Acute (2) UTI (urinary tract infection) Priority: Primary Status: Acute Qualifiers: Urinary tract infection type: acute cystitis Qualified Code(s): N30.00 - Acute cystitis without hematuria (3) Suicidal ideation Priority: Primary Status: Acute (4) Diabetes mellitus Priority: Secondary Status: Chronic 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 roasterman insulin use: with roasterman use Diabetes mellitus complication status: without complication Qualified Code(s): E11.9 - Type 2 diabetes mellitus without complications; Z79.4 - shelter (current) use of insulin (5) Noncompliance with medication regimen Priority: Secondary Status: Acute (6) Hypertension Priority: Secondary Status: Chronic Qualifiers: Hypertension type: essential hypertension Qualified Code(s): I10 - Essential (primary) hypertension (7) DVT prophylaxis Priority: Secondary Status: Acute (8) Confusion Priority: Secondary Status: Acute (9) CORA (acute kidney injury) Priority: Secondary Status: Acute Hospital course: Ms. Valle is a 62 year old female with PMH of DM, CAD, COPD, HTN, HLD and Depression ws brought into ER by family for altered mental status and severe depression. She happened to have severe hyperglycemia. Patient did mention she is not taking her insulin as she should be from last 2-3 weeks. Work up in ER showed CORA with Hyperglycemia and hypokalemia. UA showed mild LE and no nitries, concentrated with many epithelial cells. CXR and Head CT unremarkable. Pt did mention about suicidal ideation in the ER. She got admitted in the hospital and started her on ISS , Levemir as well as pre meal insulin. Her BS started improving with titrating of Insulin. With IV hydration her CORA resolved. She did c/o dysuria and her Urine cx grew G-ve rods and GBS, so started her on Augmentin. Regarding her suicidal ideation and depression pt was evaluated Psychiatrist and pt is willing to go to in patient psych unit for further care. Pt is medically stable to transfer to in patient pysch unit today.. Recommend to take Insulin Levemir 35 U BID, Metformin 1000mg BID, Novolog 12 U TID. - Time Spent with Patient Total time spent providing and/or coordinating discharge services: - Discharge Medications Home Medications: ALPRAZolam [Xanax 1 MG Tablet] 1 mg PO TID PRN 06/27/17 [History] Albuterol Sulfate [Ventolin Hfa] 2 puff IH Q4-6H PRN 06/27/17 [History] Amitriptyline [Elavil] 50 mg PO HS 06/27/17 [History] Aspirin [Lo-Dose Aspirin EC] 81 mg PO DAILY 06/27/17 [History] Budesonide/Formoterol 160/4.5 [Symbicort 160/4.5] 2 puff IH BIDR 06/27/17 [History] HYDROcodone/Acet 10/325 mg [[place] 10-325 mg] 1 tab PO Q6HR PRN 06/27/17 [History] Losartan/Hydrochlorothiazide [Losartan-Hctz 50-12.5 mg Tab] 1 tab PO BID [History] Lovastatin [Mevacor] 20 mg PO HS 06/27/17 [History] Metformin HCl [Glucophage] 1,000 mg PO BID 06/27/17 [History] Metoprolol [Lopressor] 75 mg PO BID 06/27/17 [History] Promethazine [Phenergan] 25 mg PO BID 06/27/17 [History] Rabeprazole Sodium [Aciphex] 20 mg PO DAILY 06/27/17 [History] Ranolazine [Ranexa] 500 mg PO BID 06/27/17 [History] Ipratropium/Albuterol Sulfate [Iprat-Albut 0.5-3(2.5) mg/3 ml] 3 ml IH Q6H PRN 01/08/18 [History] Nitroglycerin [Nitrostat] 0.4 mg SL AD PRN 01/08/18 [History] Amoxicillin/Clavulanate [Augmentin] 875 mg PO BIDWM #10 tablet 01/10/18 [Rx] Insulin ASPART [Novolog Flexpen] 12 unit SQ TID #0 01/10/18 [Rx] Insulin DETEMIR [Levemir] 35 unit SQ BID [id number] 01/10/18 [Rx] Phenazopyridine [Pyridium] 100 mg PO BID #10 tablet 01/10/18 [Rx] Allergies/Adverse Reactions: Allergy/AdvReac Type Severity Reaction Status Date / Time Cephalosporins AdvReac [place] Verified 01/08/18 09:09 Date of admission: 01/08/18 12:14 Primary care physician: PCP NONE Consults: 01/08/18 12:05 Consult to Psychiatry [CONS] Routine Consulting Provider: Psychiatry Echo Reason consult: Sitter/1:1 01/09/18 16:28 Consult to Nutrition [CONS] Routine Comment: Consulting Provider: NUTRITION Reason for Dietary Consult: Diet Education - Constitutional Vitals: Temp Pulse Resp BP Pulse Ox 97.8 F 60 17 108/69 96 01/10/18 10:50 01/10/18 10:50 01/10/18 10:50 01/10/18 10:50 01/10/18 10:50 General appearance: Present: cooperative, A&O X 3, answers questions appropriately Exam: Gen: Alert, awake, Oriented to time,place and person Chest: Diminished breath sounds B/L, No wheezing, No crackles, No rales Heart: S1S2+ RRR No murmurs Abd: Soft, NT, BS +, No organomegaly Ext: No edema, pulses are palpable, No calf tenderness Neuro : Benign findings Skin: No rash. - Psychiatric Psychiatric exam: Present: depressed. Absent: suicidal ideation - Patient Status Disposition: Transfer Psychiatric Hosp Condition: Good - Discharge Instructions Follow Up With: Ena Diaz MD [Partnered Physician] - 03/08/18 10:40 am NONE,PCP [Primary Care Provider] - Additional Instructions: Peg Beavers- 01/27/2018 at 12:30 - Diet and Activity Activity: increase activity as tolerated Diet: low salt diet
[2018-01-10 15:48] VITALS: BP 103/62
[2018-01-10] MEDS ORDERED: Insulin DETEMIR 100 UNIT/ML X5UNITS SQ SCH (21:00)
== END 2018-01-10 18:30 ==
LOC: EMEROOARM 09:07 → 3BNU 09:07
PROVIDERS: ADMIT Internal Medicine; ATTEND Internal Medicine